=== PATIENT | female | born 1945 | race Caucasian/White ===

== ENCOUNTER → 2017-08-04 08:31 | Outpatient (CLI) | payer OTHER, SELFPAY ==
[2017-08-04 09:00] LABS: Add Manual Diff / Slide Review NO; Basophils Percent Auto 0.8 % (0-2); Hematocrit 38.5 % (36-46); Hemoglobin 13.2 g/dL (12.0-16.0); Lymphocytes Percent Auto 22.2 % (25-40); Mean Corpuscular HGB Conc 34.4 % (30-36); Mean Corpuscular Hemoglobin 31.2 PG (26-34); Mean Corpuscular Volume 90.9 fL (80-100); Monocytes Percent Auto 9.2 % (3-14); Neutrophils Absolute Auto 4200 /uL (3000-5900); Neutrophils Percent Auto 62.8 % (50-75); Platelet Count 235 X10^3/uL (150-400); Red Blood Cell Count 4.23 X10^6/uL (4.0-5.2); Red Cell Distribution Width 13.6 % (11.6-14.8); White Blood Cell Count 6.6 X10^3/uL (4.5-11.0)
[2017-08-04 09:33] LABS: Alanine Aminotransferase 23 IU/L (9-52); Albumin 4.3 g/dL (3.5-5.0); Albumin Globulin Ratio 1.2 (1.0-2.8); Alkaline Phosphatase 94 U/L (38-126); Aspartate Aminotransferase 28 IU/L (14-36); Bilirubin Total 0.7 mg/dL (0.2-1.3); Blood Urea Nitrogen 16 mg/dL (7-17); Calcium 9.7 mg/dL (8.4-10.2); Carbon Dioxide 27 mmol/L (22-32); Chloride 102 mmol/L (98-107); Estimated Glomerular Filt Rate 54.3 mL/min (>60); Globulin 3.5 g/dL (1.7-4.1); Glucose 122 mg/dL (80-110); HDL Cholesterol 50 mg/dL (40-60); HEMOLYSIS < 15 (0-50); Potassium 4.3 mmol/L (3.4-5.1); Sodium 139 mmol/L (137-145); Total Protein 7.8 g/dL (6.3-8.2); Triglycerides 197 mg/dL (35-150)
[2017-08-04 09:57] LABS: TSH w/ Reflex to FT4 2.47 uIU/mL (0.47-4.68)
[2017-08-04 10:04] LABS: Cholesterol 322 mg/dL (140-199); LDL Cholesterol Calculated 233 mg/dL (<100)
[2017-08-04 10:52] LABS: Vitamin B12 258 pg/mL (239-931)
== END ==
PROVIDERS: Family Provider Family Medicine; PCP Family Medicine; Visit Provider Family Medicine
DX: R53.83 Other fatigue (principal); E78.5 Hyperlipidemia, unspecified; I10 Essential (primary) hypertension
CPT/HCPCS: 36415; 80053; 80061; 82607; 84443; 85025

== ENCOUNTER → 2017-08-30 10:33 | Outpatient (CLI) | payer OTHER, SELFPAY | PROVIDERS: Family Provider Family Medicine; PCP Family Medicine; Visit Provider Physician Assistant | DX: N39.0 Urinary tract infection, site not specified (principal) | CPT/HCPCS: 87077; 87086; 87186 ==

== ENCOUNTER 2018-04-07 17:43 | Emergency (ER) | payer OTHER, SELFPAY ==
[2018-04-07 17:50] VITALS: BP 181/58; PULSE 72; RESP 16; TEMP 36.4; O2SAT 98; BMI 35.2
--- NOTE | 2018-04-07 18:17 | PC.NURSE ---
ONgoing issues with urinary retention. On cipro for UTI in which she had large blood clots and a 3 way catheter. Urine clear at this time, has appointment with urologist on for ongoing retention issues.
[2018-04-07 18:24] LABS: Appearance Urine UA CLEAR; Bacteria Urine None Seen; Bilirubin Urine UA NEGATIVE (NEGATIVE); Color Urine UA YELLOW; Glucose Urine UA NEGATIVE (Negative); Ketones Urine UA NEGATIVE (NEGATIVE); Leukocyte Esterase Urine UA NEGATIVE (NEGATIVE); Nitrite Urine UA NEGATIVE (Negative); Occult Blood Urine UA NEGATIVE (Negative); Protein Urine UA NEGATIVE (Negative); RBC Urine None Seen (0-5/HPF); Urobilinogen Urine UA 0.2 E.U./dL (0.2); WBC Urine None Seen (0-5/HPF); pH Urine UA 5.5 (4.5-8.0)
[2018-04-07 18:37] LABS: Culture Indicated Urine Cult Not Indicated; Squamous Epithelial Cell Urine 0-1 /HPF
[2018-04-07 19:04] VITALS: BP 159/67; PULSE 61; RESP 14; O2SAT 96
--- NOTE | 2018-04-07 19:26 | ED.FEMALEGU ---
HPI - Female Genitourinary General Chief complaint: Urogenital-Female Stated complaint: unable to urinate Time Seen by Provider: 04/07/18 18:26 Source: patient Mode of arrival: ambulatory Limitations: no limitations History of Present Illness HPI Narrative: 72-year-old female nonsmoker presents to the emergency department with a chief complaint abdominal bloating, suprapubic tenderness and inability to urinate for the past day or so. She denies any back pain and has no fever or chills. She is not dizzy nor weak or lightheaded. She just flew home from [place] where she had an episode of urinary retention with a Moseley catheter placed. The catheter was removed on Friday and her symptoms developed again today. She has a urology appointment on to address this situation. Nursing noted over 500 mL on the bladder scan MD Complaint: dysuria Onset (ago): hour(s) Location: suprapubic Severity: moderate Quality: Aching Duration: constant Relieving factors: none Exacerbating factors: none Urinary symptoms: Difficulty Urinating Related Data Previous Rx's Medication Instructions Recorded losartan 50 mg-hydrochlorothiazide 1 tab PO QDAY #90 tab 02/16/18 12.5 mg tablet clopidogrel 75 mg tablet 75 mg PO QDAY #90 tab 03/09/18 meloxicam 15 mg tablet 15 mg PO QDAY #90 tab 03/09/18 Allergies Allergy/AdvReac Type Severity Reaction Status Date / Time No Known Drug Allergies Allergy Verified 04/07/18 18:02 Review of Systems Constitutional Denies chills, Denies fever(s), Denies lethargy and Denies weakness Eyes Denies change in vision, Denies eye discharge, Denies irritation and Denies loss of vision ENT Ears, Nose, Mouth, and Throat: Denies change in voice, Denies neck pain and Denies sore throat Cardiovascular Denies chest pain, Denies irregular heart rhythm, Denies lightheadedness, Denies palpitations, Denies dyspnea, Denies dyspnea on exertion and Denies orthopnea Respiratory Denies cough, Denies dyspnea, Denies dyspnea on exertion and Denies wheezing Gastrointestinal Gastrointestinal: Reports abdominal pain, Denies change in bowel habits, Denies diarrhea, Denies nausea and Denies vomiting Genitourinary Denies hematuria, Denies flank pain, Denies urinary incontinence and Denies urinary urgency Comments: inability to urinate Musculoskeletal Denies neck pain Integumentary/Breasts Denies pruritus, Denies erythema, Denies rash and Denies wounds Neurologic Denies confusion, Denies loss of vision and Denies weakness Psychiatric Denies anxiety, Denies confusion, Denies depression, Denies homicidal ideation and Denies suicidal ideation Endocrine Denies palpitations Hematologic/Lymphatic Denies easy bruising Allergic/Immunologic Denies wheezing [facility] Medical History Hearing deficit (Chronic) Rosacea (Chronic ~1997) Vision disorder (Chronic) Chicken pox (Resolved ~1949) Measles (Resolved ~1950) Mumps (Resolved ~1953) Stroke (Resolved ~2009) Surgical History Anesthesia (Resolved) History of hip replacement (~2014) History of tonsillectomy (~1948) Status post appendectomy (~1957) Status post dilation and curettage (~1998) Family History Father No problems noted. Mother No problems noted. Grandfather No problems noted. Grandmother No problems noted. Social History marital status: Smoking Status: Never smoker alcohol intake: current (2+ A DAY ) substance use type: does not use Family History Father No problems noted. Mother No problems noted. Grandfather No problems noted. Grandmother No problems noted. Social History marital status: Smoking Status: Never smoker alcohol intake: current (2+ A DAY ) substance use type: does not use Exam Narrative Exam Narrative: GEN: 72-year-old female appears stated age. AOx3 and in mild distress EYES: Pupils are equal, round, and reactive to light and accommodation. Extraoccular muscles are intact bilaterally. There is no subconjunctival hemorrhage or exudate. CHEST: Lungs are clear to auscultation bilaterally and free of wheezes, rales, or rhonchi. Heart rate is regular rhythm, there are no murmurs, clicks, rubs, or gallops. There is no chest wall tenderness. ABD: Abdomen is soft and nontender. There is no guarding or rebound. Bowel sounds are normal in all 4 quadrants. There is no mass or organomegaly. Moseley catheter in place draining yellow urine EXT: Full painless ROM of all extremities with no loss of sensation or strength. SKIN: Warm, pink, and dry. No erythema or rash Initial Vital Signs Initial Vital Signs: Vital Signs Temperature 97.5 F L 04/07/18 17:50 Pulse Rate 72 04/07/18 17:50 Respiratory Rate 16 04/07/18 17:50 Blood Pressure 181/58 H 04/07/18 17:50 Pulse Oximetry 98 04/07/18 17:50 Course Orders Ordered: ED Orders 04/07/18 18:15 Urinalysis and Microscopic Stat Vital Signs - 8 hr 04/07/18 17:50 04/07/18 19:04 Temperature 97.5 F L Pulse Rate 72 61 Respiratory Rate 16 14 Blood Pressure 181/58 H Blood Pressure [Right Arm] 159/67 H Pulse Oximetry 98 96 MDM - Female Genitourinary Lab Data Lab Results 04/07/18 Range/Units 18:15 Urine Color Yellow Urine Appearance Clear Urine pH 5.5 (4.5-8.0) Ur Specific Alpine 1.010 (1.000-1.035) Urine Protein Negative (Negative) Urine Glucose (UA) Negative (Negative) g/dL Urine Ketones Negative (NEGATIVE) Urine Occult Blood Negative (Negative) Urine Nitrate Negative (Negative) Urine Bilirubin Negative (NEGATIVE) Urine Urobilinogen 0.2 (0.2) E.U./dL Ur Leukocyte Esterase Negative (NEGATIVE) Urine RBC None seen (0-5/HPF) Urine WBC None seen (0-5/HPF) Ur Squamous Epith Cells 0-1 /hpf Urine Bacteria None seen (None) Ur Culture Indicated? Cult not indicated Discharge Plan Departure Patient Disposition: Home Clinical Impression: Acute urinary retention Discharge Date/Time: 04/07/18 19:16 Interventions: ED Discharge Assessment Last Done: 04/07/18 19:16 Instructions: DI for Urinary Retention in Women Activity Restrictions/Additional Instructions: *You have been diagnosed with [ acute urinary retention] *What to do: * continue to take medications as directed *Follow up with your urologist next as planned *Return to ER if you should have any new, worsening or concerning symptoms Prescriptions: No Action losartan-hydrochlorothiazide [Hyzaar] 50-12.5 mg tablet 1 tab PO QDAY Qty: 90 RF: 3 clopidogrel [Plavix] 75 mg tablet 75 mg PO QDAY Qty: 90 RF: 3 meloxicam 15 mg tablet 15 mg PO QDAY Qty: 90 RF: 0 Referrals: Rica Kay MD [Non-Staff] - Allan Garrett MD [Primary Care Provider] -
== END 2018-04-07 19:16 | disposition home or self-care (01) ==
PROVIDERS: Emergency Medicine; Emergency Provider Emergency Medicine; Family Provider Family Medicine; PCP Family Medicine
DX: R33.8 Other retention of urine (principal)
CPT/HCPCS: 51701; 51798; 81001; 99283

== ENCOUNTER → 2018-08-04 09:13 | Outpatient (CLI) | payer OTHER, SELFPAY ==
[2018-08-04 09:57] LABS: Add Manual Diff / Slide Review NO; Basophils Absolute Auto 0 /uL (0-100); Basophils Percent Auto 0.8 % (0-2); Eosinophils Absolute Auto 300 /uL (0-450); Eosinophils Percent Auto 6.1 % (2-4); Hematocrit 39.7 % (36-46); Hemoglobin 13.8 g/dL (12.0-16.0); Lymphocytes Absolute Auto 1300 /uL (1100-4500); Lymphocytes Percent Auto 26.2 % (25-40); Mean Corpuscular HGB Conc 34.8 % (30-36); Mean Corpuscular Hemoglobin 31.5 PG (26-34); Mean Corpuscular Volume 90.6 fL (80-100); Monocytes Absolute Auto 600 /uL (0-900); Neutrophils Absolute Auto 2900 /uL (1500-7000); Neutrophils Percent Auto 55.9 % (50-75); Platelet Count 222 X10^3/uL (150-400); Red Blood Cell Count 4.38 X10^6/uL (4.0-5.2); Red Cell Distribution Width 13.4 % (11.6-14.8); White Blood Cell Count 5.1 X10^3/uL (4.5-11.0)
[2018-08-04 10:17] LABS: Alanine Aminotransferase 10 IU/L (9-52); Albumin 4.5 g/dL (3.5-5.0); Albumin Globulin Ratio 1.3 (1.0-2.8); Alkaline Phosphatase 83 U/L (38-126); Aspartate Aminotransferase 28 IU/L (14-36); Bilirubin Total 0.8 mg/dL (0.2-1.3); Blood Urea Nitrogen 18 mg/dL (7-17); Carbon Dioxide 29 mmol/L (22-32); Chloride 103 mmol/L (98-107); Cholesterol 320 mg/dL (140-199); Estimated Glomerular Filt Rate 43.9 mL/min (>60); Globulin 3.4 g/dL (1.7-4.1); Glucose 110 mg/dL (80-110); HDL Cholesterol 43 mg/dL (40-60); HEMOLYSIS < 15 (0-50); LDL Cholesterol Calculated 241 mg/dL (<100); Potassium 4.8 mmol/L (3.4-5.1); Sodium 140 mmol/L (137-145); Total Protein 7.9 g/dL (6.3-8.2); Triglycerides 178 mg/dL (35-150)
[2018-08-04 11:17] LABS: TSH w/ Reflex to FT4 2.68 uIU/mL (0.47-4.68)
== END ==
PROVIDERS: PCP Family Medicine; Visit Provider Family Medicine
DX: E78.5 Hyperlipidemia, unspecified (principal); I10 Essential (primary) hypertension; Z13.6 Encounter for screening for cardiovascular disorders
CPT/HCPCS: 36415; 80053; 80061; 84443; 85025

== ENCOUNTER 2018-08-25 06:50 | Day surgery (SDC) | payer OTHER, SELFPAY ==
[2018-08-25] VITALS (9 sets, daily range): BP systolic 109–145; BP diastolic 52–91; PULSE 54–67; RESP 10–17; TEMP 36.2–36.8; O2SAT 93–100
--- NOTE | 2018-08-25 | PATH_ITS ---
[facility] Accession Number: [id number] . 01 Material submitted: . PART A: rectum - RECTAL POLYP X2 PART B: ileo-cecal valve - POLYP NEAR ILEOCECAL VALVE . 02 Diagnosis: A. Rectum, Polyps: Fragments of hyperplastic polyp (two polyps removed). . B. Ileocecal Valve, Polyp: Tubular adenoma. MRV/08/26/2018 . 02 Electronically signed: . Obey Clark MD, PhD, Pathologist NPI- [id number] . 01 Gross description: . (A) Received in formalin, labeled rectum polyp x2, are multiple fragments of reyes-white tissue (0.7 x 0.3 x 0.1 cm in aggregate). Filtered and entirely submitted in cassette A1. (B) Received in formalin, labeled polyp near ileocecal valve, are three fragments of reyes-christensen tissue (0.8 x 0.3 x 0.1 cm in aggregate). Filtered and entirely submitted in cassette B1. ([id number]) /[facility] . 02 Pathologist provided ICD-10: K62.1, D12.0 . 02 CPT . 469300, 857696 Performed at: 01 [facility] [address], [place], [place] [id number] MD Milind Zaman MD Phone: [phone] Performed at: 02 [facility] [address] [place], [place] [id number] MD Paula Bowman MD Phone: [phone]
[2018-08-25] MEDS: SODIUM CHLORIDE 0.9% 1,000 ML 84 ML IV (07:14)
--- NOTE | 2018-08-25 08:05 | PM.HP.1 ---
History of Present Illness Date Patient Seen: 08/25/18 Time Patient Seen: 08:05 Chief complaint: [id number] Narrative: The patient is a woman here for screening colonoscopy. She does not remember when her last exam was. Is been long time. No recollection of having polyps removed in the past. Patient History Medical History Hearing deficit (Chronic) Rosacea (Chronic ~1997) Vision disorder (Chronic) Chicken pox (Resolved ~1949) Measles (Resolved ~1950) Mumps (Resolved ~1953) Stroke (Resolved ~2009) Surgical History History of total right knee replacement (TKR) (Acute ~06/04/17) Anesthesia (Resolved) History of hip replacement (~2014) History of tonsillectomy (~1948) Status post appendectomy (~1957) Status post dilation and curettage (~1998) Family History Father No problems noted. Mother No problems noted. Grandfather No problems noted. Grandmother No problems noted. Social History marital status: household members: spouse Smoking Status: Never smoker alcohol intake: current (2+ A DAY ) substance use type: does not use Family & Social History Family History Father No problems noted. Mother No problems noted. Grandfather No problems noted. Grandmother No problems noted. Social History: household members spouse Tobacco & Substance use: Smoking Status Never smoker alcohol intake current alcohol intake frequency 0-2 drinks per day Substance Use Type does not use Meds Home Medications Medication Instructions Recorded Confirmed Type losartan 50 mg-hydrochlorothiazide 1 tab PO QDAY #90 tab 02/16/18 08/25/18 Rx 12.5 mg tablet clopidogrel 75 mg tablet 75 mg PO QDAY #90 tab 03/09/18 08/25/18 Rx triamcinolone acetonide 0.1 % See Rx Instructions TOP BID #28.4 08/05/18 08/25/18 Rx topical cream gram meloxicam 15 mg tablet 15 mg PO QDAY #90 tab 08/24/18 08/25/18 Rx Allergies Allergy/AdvReac Type Severity Reaction Status Date / Time No Known Drug Allergies Allergy Verified 08/25/18 07:08 Review of Systems Review of Systems All systems reviewed & are unremarkable except as noted in HPI and below Neurologic Comments: History of stroke in the distant past. Has used Plavix since. Exam Vital Signs (past 8 hours): - 08/25/18 07:10 Temperature 98.2 F Pulse Rate 67 Respiratory Rate 16 Blood Pressure 145/82 H Oxygen Delivery Method Room Air Narrative Exam Narrative: Operative no apparent distress. Eyes nonicteric. Lungs clear to auscultation. Heart regular rate and rhythm without murmur gallop. Abdomen is soft protuberant nontender without mass. Alert and oriented x3. Assessment & Plan Assessment & Plan narrative: For colonoscopy. I have discussed the procedure and the rationale with the patient including risks of bleeding, perforation which would necessitate a major operation, failure to find remove all lesions and the potential to tattoo. They appeared to understand and wished to proceed.
--- NOTE | 2018-08-25 08:08 | PM.PREOP ---
Pre-operative Note Interval Note History & Physical reviewed/Exam performed by Physician: Yes Changes to H&P: No ASA Class (for procedural sedation): II
--- NOTE | 2018-08-25 08:30 | SUR.OPER ---
Used Alligator biopsy forceps [id number]
[2018-08-25] MEDS: fentaNYL 250 MCG/5 ML INJ IV (09:05)
[2018-08-25] MEDS: MIDAZOLAM 5 MG/5 ML VIAL IV (09:06)
--- NOTE | 2018-08-25 09:20 | P.OP.ENDO_ITS ---
Operative Date/Time/Diagnoses Date of procedure: 08/25/18 Time of procedure: 09:15 Pre-op diagnosis: Screening exam. Last exam was 2010 Post-op diagnosis: same (Polyp near the cecum. Also to in the rectum. Internal hemorrhoids. Extensive pandiverticulosis.) Procedure & Clinicians Study performed: Colonoscopy with cold biopsy Same procedure as scheduled: Yes Indications: Screening Surgeon: Adan Shrestha Procedure Notes SCOAP/Timeout: Performed Procedure in detail: The patient was placed in the left lateral decubitus position and underwent IV sedation directed by the surgeon consisting of fentanyl and Versed. Digital exam was remarkable for external hemorrhoids. There was a small amount of stool in the vault.. The scope was inserted and advanced through the rectum into the sigmoid, descending, transverse, and ascending colon. We reached the ascending colon with some difficulty as the patient had to be repositioned, stiffener applied, and pressure applied. There was a small polyp noted in the proximal rectum that was biopsied on the way in. It appeared to be completely removed.. The cecum was reached identified by the ileocecal valve and the appendiceal opening. The ileocecal valve was not can nulated. There was a small polypoid lesion near the ileocecal valve. This was biopsied and appeared to be removed. The scope was gradually brought out. One other Polyp was found at 20 cm. This was a tiny polyp which was removed with biopsy forceps.. The scope ultimately was retroflexed in the rectum. The appearance was remarkable for rather large hemorrhoids but no ulceration.. The scope was removed and the patient tolerated the procedure well. Prep was good. Scope withdrawal time: 8 minutes Sedation minutes: 63 Findings: diverticulosis (Abarca colonic), internal hemorrhoids (With external hemorrhoids) and polyp (Three small polyps removed) Specimen(s): other (Polyps) Complications: none Recommendations: Colonscopy in 5 years (Unless the polyps are not neoplastic in which case the patient would not require additional colonoscopy) Follow up: as needed Disposition: PACU
== END 2018-08-25 10:35 | disposition home or self-care (01) ==
PROVIDERS: PCP Family Medicine; Visit Provider Specialist
PROC: 0DJD8ZZ Inspection of Lower Intestinal Tract, Via Natural or Artificial Opening Endoscopic (ICD-10-PCS; CPT 45378; principal; 2018-08-25 07:45)
DX: Z12.11 Encounter for screening for malignant neoplasm of colon (principal); K57.30 Diverticulosis of large intestine without perforation or abscess without bleeding; K64.4 Residual hemorrhoidal skin tags; K64.8 Other hemorrhoids; D12.0 Benign neoplasm of cecum; K62.1 Rectal polyp
CPT/HCPCS: 45380; 99152; 99153; J2250; J3010

== ENCOUNTER → 2018-11-02 15:14 | Outpatient (CLI) | payer OTHER, SELFPAY | PROVIDERS: PCP Family Medicine; Visit Provider Family Medicine | DX: R30.0 Dysuria (principal) | CPT/HCPCS: 87077; 87086; 87186 ==

== ENCOUNTER → 2019-03-01 11:37 | Outpatient (CLI) | payer MEDICARE, SELFPAY ==
[2019-03-01 13:16] LABS: Appearance Urine UA CLOUDY; Bilirubin Urine UA NEGATIVE (NEGATIVE); Color Urine UA YELLOW; Glucose Urine UA NEGATIVE (Negative); Ketones Urine UA NEGATIVE (NEGATIVE); Leukocyte Esterase Urine UA 1+ (NEGATIVE); Nitrite Urine UA POSITIVE (Negative); Occult Blood Urine UA TRACE-LYSED (Negative); Protein Urine UA 1+ (Negative); Specific Gravity Urine UA 1.015 (1.000-1.035); Urobilinogen Urine UA 0.2 E.U./dL (0.2)
[2019-03-01 13:54] LABS: Amorphous Sediment Urine 3+; Bacteria Urine Many (>30); Culture Indicated Urine Specimen Cultured; RBC Urine 1-5/HPF (0-5/HPF); Squamous Epithelial Cell Urine 1-5 /HPF (0-5/HPF); Triple Phosphate Crystal Urine Many; WBC Urine 10-30/HPF (0-5/HPF)
== END ==
PROVIDERS: PCP Family Medicine; Visit Provider Family Medicine
DX: R30.0 Dysuria (principal)
CPT/HCPCS: 81003; 81015; 87086

== ENCOUNTER → 2020-01-15 09:23 | Outpatient (CLI) | payer MEDICARE, SELFPAY ==
[2020-01-15 10:11] LABS: COVID19 -Nasal RAPID Negative (Negative)
== END ==
PROVIDERS: PCP Family Medicine; Visit Provider Physician Assistant
DX: Z11.59 Encounter for screening for other viral diseases (principal)
CPT/HCPCS: 87635

== ENCOUNTER → 2020-01-20 13:58 | Outpatient (CLI) | payer MEDICARE, SELFPAY ==
[2020-01-20 15:09] LABS: Appearance Urine UA CLOUDY; Bilirubin Urine UA NEGATIVE (NEGATIVE); Color Urine UA YELLOW; Glucose Urine UA NEGATIVE (Negative); Ketones Urine UA NEGATIVE (NEGATIVE); Leukocyte Esterase Urine UA TRACE (NEGATIVE); Nitrite Urine UA POSITIVE (Negative); Occult Blood Urine UA TRACE-INTACT (Negative); Protein Urine UA 2+ (Negative); Specific Gravity Urine UA 1.015 (1.000-1.035); Urobilinogen Urine UA 0.2 E.U./dL (0.2)
[2020-01-20 15:35] LABS: pH Urine UA 7.5 (4.5-8.0)
[2020-01-20 15:36] LABS: RBC Urine 0-1/HPF (0-5/HPF)
[2020-01-20 15:37] LABS: Amorphous Sediment Urine 2+; Bacteria Urine Many (>30); Culture Indicated Urine Specimen Cultured; Squamous Epithelial Cell Urine 0-1 /HPF (0-5/HPF); Triple Phosphate Crystal Urine Few; WBC Urine 10-30/HPF (0-5/HPF)
== END ==
PROVIDERS: PCP Family Medicine; Visit Provider Family Medicine
DX: R30.0 Dysuria (principal)
CPT/HCPCS: 81001; 87086

== ENCOUNTER → 2020-01-22 09:27 | Outpatient (CLI) | payer MEDICARE, SELFPAY ==
[2020-01-22 11:09] LABS: COVID19 -Nasal RAPID Negative (Negative)
== END ==
PROVIDERS: PCP Family Medicine; Visit Provider Nurse Practitioner
DX: Z11.59 Encounter for screening for other viral diseases (principal)
CPT/HCPCS: 87635

== ENCOUNTER 2020-01-25 07:43 | Day surgery (SDC) | payer MEDICARE, SELFPAY ==
[2020-01-25 08:02] VITALS: BP 153/82; PULSE 86; RESP 16; TEMP 36.4; O2SAT 95; BMI 34.3
[2020-01-25] MEDS: PROPARACAINE 0.5% OPHTH SOL 2 DROPS EYE-OP (08:09)
[2020-01-25] MEDS: CATARACT EYE COMPOUND (10 DROPS/SYRINGE) 3 DROPS EYE-OP (08:14)
--- NOTE | 2020-01-25 09:00 | P.OP_ITS ---
Operative Date/Time/Diagnoses Pre-op diagnosis: Nuclear Cataract Left eye Post-op diagnosis: same Procedure & Clinicians Same procedure as scheduled: Yes Surgeon: Hamlet Alvarez Anesthesia Type: MAC +/- and Sedation Operative Notes Procedure in detail: Patient brought to the operating suite. Tetracaine drops placed in the left eye. Marking instrument was used to angelina the vertical and horizontal meridians. Patient was prepped and draped in sterile manner. Wire lid speculum was placed in the eye. Marking instrument was used to angelina the 85 degree meridian. Betadine drops were placed on the eye. This was irrigated. Lidocaine jelly was placed on the eye. A paracentesis port was created with a side-port blade. 0.1 mL 1% preservative free lidocaine was injected into the anterior chamber. The anterior chamber was deepened with viscoelastic. 2.6 mm keratome was used to create a temporal clear corneal incision. Cystotome and Utrata forceps were used to create continuous tear capsulorrhexis. Balanced salt solution was used to hydro dissect the nucleus. The phacoemulsification handpiece was inserted and the nucleus was removed using the stop and chop najma hnique. The irrigation aspiration handpiece was inserted and the remaining cortex was removed. Anterior chamber was deepened with viscoelastic. An Schofield [id number] intraocular lens with a power of 22.0 was injected into the capsular bag. Irrigation aspiration handpiece was inserted and the remaining viscoelastic was removed. The lens was rotated to the 85 degree meridian. Incision was hydrated with balanced salt solution and found to be leak free with pressure with Weck- Maida sponges. 0.1 mL Vigamox injected anterior chamber. 0.3 mL Kenalog 10 mg was injected subconjunctivally. Lid speculum was removed. The patient left the operating room in excellent condition. Complications: none Post-operative Condition: stable Disposition: same day surgery
--- NOTE | 2020-01-25 09:00 | PM.PREOP ---
Pre-operative Note Interval Note History & Physical reviewed/Exam performed by Physician: Yes Changes to H&P: No
[2020-01-25] MEDS: PHENYLEPHRINE/LIDOCAINE VIAL (OR) 0.2 ML EYE-OP (09:21)
[2020-01-25] MEDS: TRIAMCINOLONE 50 MG/5 ML VIAL INJ (09:21)
[2020-01-25] MEDS: MOXIFLOXACIN INJ 5 MG/ML VIAL EYE-OP (09:21)
[2020-01-25] MEDS: BALANCED SALT IRRIG SOLN NO.2 500 ML, EPINEPHrine 1 MG IRR (09:22)
[2020-01-25] MEDS: CHONDROIDTIN/SOD HYALURONATE 1.05 ML SYRINGE INTRAOCULA (09:22)
[2020-01-25] MEDS: TETRACAINE 0.5% OPHTH DROPS 4 ML 2 DROPS EYE-OP (09:22)
[2020-01-25] MEDS: LIDOCAINE JELLY 2% 5 ML 1 APPLIC TOP (09:22)
[2020-01-25 09:36] VITALS: BP 151/70; PULSE 65; RESP 16; TEMP 36.6; O2SAT 95
--- NOTE | 2020-01-25 09:51 | SUR.PHASEII ---
Pt dressed when ready, called, assisted pt to dress. pt left when ready and left in stable condition.
== END 2020-01-25 09:51 | disposition home or self-care (01) ==
PROVIDERS: PCP Family Medicine; Referring Provider Family Medicine; Visit Provider Ophthalmology
PROC: (CPT 66984; principal; 2020-01-25 07:45)
DX: H25.12 Age-related nuclear cataract, left eye (principal); Z86.73 Personal history of transient ischemic attack (TIA), and cerebral infarction without residual deficits; E78.00 Pure hypercholesterolemia, unspecified; I10 Essential (primary) hypertension
CPT/HCPCS: 66984; J0171; J2250; J3010; J3301; V2787

== ENCOUNTER → 2020-02-12 11:23 | Outpatient (CLI) | payer MEDICARE, SELFPAY ==
[2020-02-12 12:36] LABS: COVID19 -Nasal RAPID Negative (Negative)
== END ==
PROVIDERS: PCP Family Medicine; Visit Provider Physician Assistant
DX: Z01.812 Encounter for preprocedural laboratory examination (principal); Z20.822 Contact with and (suspected) exposure to COVID-19
CPT/HCPCS: 87635; C9803

== ENCOUNTER → 2020-02-19 13:34 | Outpatient (CLI) | payer MEDICARE, SELFPAY ==
[2020-02-19 14:51] LABS: COVID19 -Nasal RAPID Negative (Negative)
== END ==
PROVIDERS: PCP Family Medicine; Visit Provider Nurse Practitioner
DX: Z01.812 Encounter for preprocedural laboratory examination (principal); Z20.822 Contact with and (suspected) exposure to COVID-19
CPT/HCPCS: 87635; C9803

== ENCOUNTER 2020-02-22 08:26 | Day surgery (SDC) | payer MEDICARE, SELFPAY ==
[2020-02-22 08:56] VITALS: BP 134/75; PULSE 77; RESP 20; TEMP 36.2; O2SAT 98; BMI 34.3
[2020-02-22] MEDS: PROPARACAINE 0.5% OPHTH SOL 2 DROPS EYE-OP (09:01)
[2020-02-22] MEDS: CATARACT EYE COMPOUND (10 DROPS/SYRINGE) 3 DROPS EYE-OP (09:02)
--- NOTE | 2020-02-22 09:42 | PM.PREOP ---
Pre-operative Note Interval Note History & Physical reviewed/Exam performed by Physician: Yes Changes to H&P: No
--- NOTE | 2020-02-22 09:43 | PM.OP.1 ---
Operative Date/Time/Diagnoses Pre-op diagnosis: Nuclear cataract right eye Procedure & Clinicians Procedure: Cataract Surgery Same procedure as scheduled: Yes Surgeon: Hamlet Alvarez Anesthesia Type: MAC +/- and Sedation Operative Notes Procedure in detail: Patient brought to the operating suite. Tetracaine drops placed in the right eye. Marking instrument was used to angelina the vertical and horizontal meridians. Patient was prepped and draped in sterile manner. Wire lid speculum was placed in the eye. marking instrument was used to angelina 50 degree meridian. Betadine drops were placed on the eye. This was irrigated. Lidocaine jelly was placed on the eye. A paracentesis port was created with a side-port blade. 0.1 mL 1% preservative free lidocaine was injected into the anterior chamber. The anterior chamber was deepened with viscoelastic. 2.6 mm keratome was used to create a temporal clear corneal incision. Cystotome and Utrata forceps were used to create continuous tear capsulorrhexis. Balanced salt solution was used to hydro dissect the nucleus. The phacoemulsification handpiece was inserted and the nucleus was removed using the stop and chop technique. The irrigation aspiration handpiece was inserted and the remaining cortex was removed. Anterior chamber was deepened with viscoelastic. An Schofield [id number] intraocular lens with a power of 20.5 was injected into the capsular bag. After the lens was placed in the bag there was 2 clock hours of zonular dehisccence and bleeding at 10:00. Irrigation aspiration handpiece was inserted and the remaining viscoelastic was removed. There was some vitreous at the area of zonular dehisccence. The lens was rotated to the 50 degree meridian. Incision was hydrated with balanced salt solution and found to be leak free with pressure with Weck-Maida sponges. 0.1 mL Vigamox injected anterior chamber. 0.3 mL Kenalog 10 mg was injected subconjunctivally. Lid speculum was removed. 2 drops of timolol 0.5 % was placed in the eye. The patient left the operating room in excellent condition. Complications: none Post-operative Condition: stable Disposition: same day surgery
[2020-02-22] MEDS: PHENYLEPHRINE/LIDOCAINE VIAL (OR) 0.2 ML EYE-OP (10:05)
[2020-02-22] MEDS: TRIAMCINOLONE 50 MG/5 ML VIAL INJ (10:05)
[2020-02-22] MEDS: MOXIFLOXACIN INJ 5 MG/ML VIAL EYE-OP (10:05)
[2020-02-22] MEDS: TETRACAINE 0.5% OPHTH DROPS 4 ML 2 DROPS EYE-OP (10:06)
[2020-02-22] MEDS: CHONDROIDTIN/SOD HYALURONATE 1.05 ML SYRINGE INTRAOCULA (10:06)
[2020-02-22] MEDS: LIDOCAINE JELLY 2% 5 ML 1 APPLIC TOP (10:06)
[2020-02-22] MEDS: BALANCED SALT IRRIG SOLN NO.2 500 ML, EPINEPHrine 1 MG IRR (10:07)
[2020-02-22] MEDS: TIMOLOL 0.5% OPHTH 2 DROPS EYE-RIGHT (10:19)
[2020-02-22 10:40] VITALS: BP 168/78; PULSE 68; RESP 17; TEMP 36.2; O2SAT 94
== END 2020-02-22 10:53 | disposition home or self-care (01) ==
PROVIDERS: PCP Family Medicine; Referring Provider Ophthalmology; Visit Provider Ophthalmology
PROC: (CPT 66984; principal; 2020-02-22 10:15)
DX: H25.11 Age-related nuclear cataract, right eye (principal); Z86.73 Personal history of transient ischemic attack (TIA), and cerebral infarction without residual deficits; E78.00 Pure hypercholesterolemia, unspecified; I10 Essential (primary) hypertension
CPT/HCPCS: 66984; J0171; J2250; J3301; V2787

== ENCOUNTER → 2020-04-12 11:31 | Outpatient (CLI) | payer MEDICARE, SELFPAY ==
[2020-04-12 12:37] LABS: Add Manual Diff / Slide Review NO; Basophils Absolute Auto 0 /uL (0-100); Basophils Percent Auto 0.7 % (0-2); Eosinophils Absolute Auto 400 /uL (0-450); Eosinophils Percent Auto 5.6 % (2-4); Hematocrit 35.6 % (36-46); Hemoglobin 12.2 g/dL (12.0-16.0); Lymphocytes Absolute Auto 2100 /uL (1100-4500); Lymphocytes Percent Auto 31.8 % (25-40); Mean Corpuscular HGB Conc 34.1 % (30-36); Mean Corpuscular Hemoglobin 31.7 PG (26-34); Monocytes Absolute Auto 700 /uL (0-900); Monocytes Percent Auto 10.3 % (3-14); Neutrophils Absolute Auto 3400 /uL (1500-7000); Neutrophils Percent Auto 51.6 % (50-75); Platelet Count 271 X10^3/uL (150-400); Red Blood Cell Count 3.83 X10^6/uL (4.0-5.2); Red Cell Distribution Width 13.3 % (11.6-14.8); White Blood Cell Count 6.5 X10^3/uL (4.5-11.0)
[2020-04-12 12:55] LABS: Alanine Aminotransferase 9 IU/L (<35); Albumin 4.5 g/dL (3.5-5.0); Albumin Globulin Ratio 1.6 (1.0-2.8); Alkaline Phosphatase 81 U/L (38-126); Aspartate Aminotransferase 24 IU/L (14-36); BUN Creatinine Ratio 15.7 (6-22); Bilirubin Total 0.6 mg/dL (0.2-1.3); Blood Urea Nitrogen 16 mg/dL (7-17); Calcium 10.2 mg/dL (8.4-10.2); Carbon Dioxide 27 mmol/L (22-32); Chloride 101 mmol/L (98-107); Estimated Glomerular Filt Rate 52.8 mL/min (>60); Globulin 2.8 g/dL (1.7-4.1); Glucose 117 mg/dL (80-110); HEMOLYSIS < 15 (0-50); Potassium 3.9 mmol/L (3.4-5.1); Sodium 136 mmol/L (137-145); Total Protein 7.3 g/dL (6.3-8.2)
[2020-04-18 13:01] LABS: Urea Breath Test >18YRS NEGATIVE
== END ==
PROVIDERS: PCP Family Medicine; Referring Provider Family Medicine; Visit Provider Family Medicine
DX: R10.9 Unspecified abdominal pain (principal); R63.4 Abnormal weight loss
CPT/HCPCS: 36415; 80053; 83013; 85025

== ENCOUNTER → 2020-05-15 11:54 | Outpatient (CLI) | payer MEDICARE, SELFPAY ==
[2020-05-15 13:32] LABS: Appearance Urine UA CLOUDY; Bilirubin Urine UA NEGATIVE (NEGATIVE); Color Urine UA YELLOW; Glucose Urine UA NEGATIVE (Negative); Ketones Urine UA NEGATIVE (NEGATIVE); Leukocyte Esterase Urine UA 2+ (NEGATIVE); Nitrite Urine UA NEGATIVE (Negative); Occult Blood Urine UA 3+ (Negative); Protein Urine UA 1+ (Negative); Specific Gravity Urine UA 1.015 (1.000-1.035)
[2020-05-15 13:37] LABS: pH Urine UA 7.5 (4.5-8.0)
[2020-05-15 13:48] LABS: Amorphous Sediment Urine 2+; Bacteria Urine Many (>30); RBC Urine 30-100/HPF (0-5/HPF); Squamous Epithelial Cell Urine 1-5 /HPF (0-5/HPF); WBC Urine >100/HPF (0-5/HPF)
[2020-05-15 13:50] LABS: Culture Indicated Urine Specimen Cultured
== END ==
PROVIDERS: PCP Family Medicine; Referring Provider Family Medicine; Visit Provider Family Medicine
DX: R31.9 Hematuria, unspecified (principal)
CPT/HCPCS: 81003; 81015; 87077; 87086; 87186

== ENCOUNTER 2020-05-17 13:06 | Emergency (ER) | payer MEDICARE, SELFPAY ==
[2020-05-17 13:25] VITALS: BP 174/80; PULSE 84; RESP 14; TEMP 36.8; O2SAT 97
[2020-05-17 13:38] LABS: Bacteria Urine None Seen
--- NOTE | 2020-05-17 13:52 | DI.RAD.S_ITS ---
PROCEDURE: XR CHEST 1V INDICATIONS: suspected sepsis TECHNIQUE: One view of the chest was acquired. COMPARISON: None. FINDINGS: Surgical changes and devices: None. Lungs and pleura: Lungs are clear. No pleural effusions or pneumothorax. Mediastinum: Mediastinal contours appear normal. Calcified mediastinal lymph nodes. Heart size is normal. Bones and chest wall: No suspicious bony lesions. Overlying soft tissues appear unremarkable. IMPRESSION: No acute cardiopulmonary disease. Dictated by: Jackie Cartwright M.D. on 05/17/2020 at 13:58 Approved by: Jackie Cartwright M.D. on 05/17/2020 at 13:58
[2020-05-17 14:01] LABS: Appearance Urine UA TURBID; Bilirubin Urine UA NEGATIVE (NEGATIVE); Color Urine UA RED; Glucose Urine UA NEGATIVE (Negative); Ketones Urine UA TRACE (NEGATIVE); Leukocyte Esterase Urine UA TRACE (NEGATIVE); Nitrite Urine UA NEGATIVE (Negative); Occult Blood Urine UA 3+ (Negative); Protein Urine UA 3+ (Negative)
[2020-05-17 14:05] LABS: pH Urine UA 7.5 (4.5-8.0)
[2020-05-17 14:08] LABS: Culture Indicated Urine Specimen Cultured; RBC Urine >100/HPF (0-5/HPF); WBC Urine 5-10/HPF (0-5/HPF)
[2020-05-17] MEDS: SODIUM CHLORIDE 0.9% 1,000 ML 1000 ML IV (14:28)
[2020-05-17 14:31] LABS: Add Manual Diff / Slide Review NO; Basophils Absolute Auto 100 /uL (0-100); Basophils Percent Auto 0.8 % (0-2); Eosinophils Absolute Auto 400 /uL (0-450); Eosinophils Percent Auto 4.5 % (2-4); Hematocrit 34.1 % (36-46); Hemoglobin 11.7 g/dL (12.0-16.0); Lymphocytes Absolute Auto 2400 /uL (1100-4500); Lymphocytes Percent Auto 27.2 % (25-40); Mean Corpuscular HGB Conc 34.2 % (30-36); Mean Corpuscular Hemoglobin 32.1 PG (26-34); Mean Corpuscular Volume 93.8 fL (80-100); Monocytes Absolute Auto 900 /uL (0-900); Monocytes Percent Auto 10.4 % (3-14); Neutrophils Absolute Auto 5000 /uL (1500-7000); Neutrophils Percent Auto 57.1 % (50-75); Platelet Count 262 X10^3/uL (150-400); Red Blood Cell Count 3.64 X10^6/uL (4.0-5.2); Red Cell Distribution Width 13.5 % (11.6-14.8); White Blood Cell Count 8.8 X10^3/uL (4.5-11.0)
[2020-05-17 14:39] LABS: INR 1.1 (0.9-1.3); Prothrombin Time 12.9 SECONDS (10.1-12.7)
[2020-05-17 14:41] LABS: PTT Partial Thromboplastin Tim 35 SECONDS (26.4-36.2)
[2020-05-17 14:47] LABS: Lactate (Lactic Acid) 1.2 mmol/L (0.7-2.1)
[2020-05-17 14:48] LABS: Alanine Aminotransferase 9 IU/L (<35); Albumin 4.5 g/dL (3.5-5.0); Albumin Globulin Ratio 1.4 (1.0-2.8); Alkaline Phosphatase 89 U/L (38-126); Aspartate Aminotransferase 26 IU/L (14-36); BUN Creatinine Ratio 19.4 (6-22); Bilirubin Total 0.6 mg/dL (0.2-1.3); Blood Urea Nitrogen 20 mg/dL (7-17); Calcium 10.4 mg/dL (8.4-10.2); Carbon Dioxide 25 mmol/L (22-32); Chloride 98 mmol/L (98-107); Estimated Glomerular Filt Rate 52.2 mL/min (>60); Globulin 3.2 g/dL (1.7-4.1); Glucose 107 mg/dL (80-110); HEMOLYSIS < 15 (0-50); Lipase 142 U/L (23-300); Potassium 3.6 mmol/L (3.4-5.1); Sodium 135 mmol/L (137-145); Total Protein 7.7 g/dL (6.3-8.2)
--- NOTE | 2020-05-17 15:32 | ED_ITS ---
HPI - Female Genitourinary General Chief complaint: Urogenital-Female Stated complaint: blood clots in urine Time Seen by Provider: 05/17/20 15:19 Source: patient Mode of arrival: Ambulatory Limitations: no limitations History of Present Illness HPI Narrative: This is a 74-year-old female comes emergency department with concern for bladder infection and hematuria. Patient was noted that she had hematuria about 3 days ago. She has had frequent UTIs sometimes up to 3 times yearly. She had urine obtained and was started on Macrobid or nitrofurantoin. Patient states she has felt feverish and chilled overnight she has been having chronic nausea since January. She has not been having any emesis. She has bee n having early satiety and anorexia and had a unintentional 25 lb weight loss since January. Patient denies any abdominal pain except for sometimes burning overnight but this is also been occurring since January. She has not had any new changes and does not have any currently. She is not appreciate any bright red blood, melena, diarrhea or other GI issues. She has noticed a decrease in her output. She has chronic urinary incontinence, she has developed some dysuria, frequency and cloudy urine in the last 3 days. Patient states she was hospitalized in [place] for several days and required [place] catheterization with irrigation for hematuria. Patient states she does have a history of h ypertension, TIA or stroke and takes clopidogrel daily. She was on his medication for dyslipidemia but did not tolerate this well. She denies any diabetes or chronic kidney disease. Her prior surgeries include appendectomy, knee surgery, hip surgery and a D&C remotely when she was lokesh/postmenopausal. No allergies to medications. No tobacco, occasional alcohol which she has been abstinent for 4 months with no illicit. Dr. Garrett is her primary care. With her chronic symptoms since January they had been anticipating ordering a CT of her abdomen and pelvis. Related Data Previous Rx's Medication Instructions Recorded clopidogrel 75 mg tablet 75 mg PO QDAY #90 tab 06/25/19 hydrochlorothiazide 12.5 mg tablet 12.5 mg PO DAILY #90 tab 04/04/20 losartan 50 mg tablet 50 mg PO DAILY #90 tab 04/04/20 nitrofurantoin 100 mg PO Q12H 5 Days #10 cap 05/15/20 monohydrate/macrocrystals 100 mg capsule nitrofurantoin macrocrystal 100 mg PO BEDTIME #60 cap 05/17/20 Allergies Allergy/AdvReac Type Severity Reaction Status Date / Time No Known Drug Allergies Allergy Verified 05/17/20 13:39 Review of Systems Review of Systems ROS Unobtainable: All systems reviewed & are unremarkable except as noted in HPI and below Patient History Medical History Arthritis, lumbar spine Chicken pox (~1949) Hearing deficit Left leg weakness Measles (~1950) Mumps (~1953) Rosacea (~1997) Stroke (~2009) Vision disorder Surgical History Anesthesia History of hip replacement (~2014) History of tonsillectomy (~1948) History of total right knee replacement (TKR) (~06/04/17) Status post appendectomy (~1957) Status post dilation and curettage (~1998) Family History Father No problems noted. Mother No problems noted. Grandfather No problems noted. Grandmother No problems noted. alcohol intake frequency: 0-2 drinks per day Substance Use Type: does not use Exam Narrative Exam Narrative: GENERAL: Alert and oriented x three, well-nourished female in mild distress. HEENT: Head normocephalic, atraumatic, EOMI, pupils reactive, face symmetric, moist mucous membranes NECK: Supple, full range of motion CARDIOVASCULAR: Regular rate and rhythm without murmurs, rubs or gallops. RESPIRATORY: Breath sounds equal bilaterally, no wheezes rales or rhonchi. ABDOMEN: Soft, nontender. Normoactive bowel sounds all 4 quadrants. No guarding or rebound, rigidity, no mass : No CVA tenderness EXTREMITIES: Normal range of motion, no clubbing or edema. Neurovascularly intact NEUROLOGICAL: Cranial nerves II through XII grossly intact. Moving all extremities SKIN: Warm, dry, no petechiae, no rashes or lesions. Initial Vital Signs Initial Vital Signs: Vital Signs Temperature 98.2 F 05/17/20 13:25 Pulse Rate 84 05/17/20 13:25 Respiratory Rate 14 05/17/20 13:25 Blood Pressure 174/80 H 05/17/20 13:25 Pulse Oximetry 97 04/07/21 13:25 Course Orders Ordered: ED Orders 05/17/20 13:11 Urinalysis and Microscopic Stat Urine Culture Stat 05/17/20 13:52 XR chest 1V Stat EKG-12 Lead Stat 05/17/20 14:10 Complete Blood Count AUTO DIFF Stat Comprehensive Metabolic Panel Stat Lactate (Lactic Acid) Stat Lipase Stat Partial Thromboplastin Time Stat Procalcitonin Stat Prothrombin Time INR Stat 05/17/20 14:33 Blood Culture Stat 05/17/20 15:56 CT abdomen pelvis w con Stat Discontinued Medications Sodium Chloride (Normal Saline 0.9%) 1,000 mls @ 1,000 mls/hr IV BOLUS ONE Stop: 05/17/20 14:50 Last Infusion: 05/17/20 15:33 Dose: 0 mls/hr Documented by: JOSÉ MIGUEL Admin: 05/17/20 14:28 Dose: 1,000 mls/hr Documented by: JOSÉ MIGUEL Consultations Consultation #1: Spoke with Dr. Leonard. He would like us to to see patient for follow-up. He feels that she needs cystoscopy but he would like her to be treated with a full 7 days of her nitrofurantoin followed by 1 tablet q.h.s. times 60 days. He does ask that we copy him on the chart so that he can receive the patient information. Time: 17:00 Vital Signs Vital signs: Vital Signs - 8 hr 05/17/20 13:25 05/17/20 17:43 Temperature 98.2 F Pulse Rate 84 72 Respiratory Rate 14 Blood Pressure 174/80 H 140/70 Pulse Oximetry 97 98 MDM - Female Genitourinary Lab Data Attestation: I reviewed the patient's lab results. Result diagrams: 05/17/20 14:10 05/17/20 14:10 Labs: Lab Results 05/17/20 05/17/20 05/17/20 Range/Units 13:11 14:10 14:10 WBC 8.8 (4.5-11.0) X10^3/uL RBC 3.64 L (4.0-5.2) X10^6/uL Hgb 11.7 L (12.0-16.0) g/dL Hct 34.1 L (36-46) % MCV 93.8 (80-100) fL MCH 32.1 (26-34) PG MCHC 34.2 (30-36) % RDW 13.5 (11.6-14.8) % Plt Count 262 (150-400) X10^3/uL Neut % (Auto) 57.1 (50-75) % Lymph % (Auto) 27.2 (25-40) % [place] % (Auto) 10.4 (3-14) % Eos % (Auto) 4.5 H (2-4) % Baso % (Auto) 0.8 (0-2) % Neut # (Auto) 5000 (9323-1782) /uL Lymph # (Auto) 2400 (5118-7934) /uL [place] # (Auto) 900 (0-900) /uL Eos # (Auto) 400 (0-450) /uL Baso # (Auto) 100 (0-100) /uL PT 12.9 H (10.1-12.7) SECONDS INR 1.1 (0.9-1.3) APTT 35 (26.4-36.2) SECONDS Sodium (137-145) mmol/L Potassium (3.4-5.1) mmol/L Chloride (98-107) mmol/L Carbon Dioxide (22-32) mmol/L BUN (7-17) mg/dL Creatinine (0.52-1.04) mg/dL Estimated GFR (>60) mL/min BUN/Creatinine Ratio (6-22) Glucose (80-110) mg/dL Lactate (0.7-2.1) mmol/L Calcium (8.4-10.2) mg/dL Total Bilirubin (0.2-1.3) mg/dL AST (14-36) IU/L ALT (<35) IU/L Alkaline Phosphatase (38-126) U/L Total Protein (6.3-8.2) g/dL Albumin (3.5-5.0) g/dL Globulin (1.7-4.1) g/dL Albumin/Globulin Ratio (1.0-2.8) Lipase (23-300) U/L Procalcitonin (<0.5) ng/mL Urine Color Red Urine Appearance Turbid Urine pH 7.5 (4.5-8.0) Ur Specific [place] 1.020 (1.000-1.035) Urine Protein 3+ H (Negative) Urine Glucose (UA) Negative (Negative) g/dL Urine Ketones Trace H (NEGATIVE) Urine Occult Blood 3+ H (Negative) Urine Nitrate Negative (Negative) Urine Bilirubin Negative (NEGATIVE) Urine Urobilinogen 1.0 (0.2) E.U./dL Ur Leukocyte Esterase Trace H (NEGATIVE) Urine RBC >100/hpf H (0-5/HPF) Urine WBC 5-10/hpf H (0-5/HPF) Urine Bacteria None seen (None) Ur Culture Indicated? Specimen cultured 05/17/20 05/17/20 Range/Units 14:10 14:10 WBC (4.5-11.0) X10^3/uL RBC (4.0-5.2) X10^6/uL Hgb (12.0-16.0) g/dL Hct (36-46) % MCV (80-100) fL MCH (26-34) PG MCHC (30-36) % RDW (11.6-14.8) % Plt Count (150-400) X10^3/uL Neut % (Auto) (50-75) % Lymph % (Auto) (25-40) % [place] % (Auto) (3-14) % Eos % (Auto) (2-4) % Baso % (Auto) (0-2) % Neut # (Auto) (0541-8805) /uL Lymph # (Auto) (0326-0246) /uL [place] # (Auto) (0-900) /uL Eos # (Auto) (0-450) /uL Baso # (Auto) (0-100) /uL PT (10.1-12.7) SECONDS INR (0.9-1.3) APTT (26.4-36.2) SECONDS Sodium 135 L (137-145) mmol/L Potassium 3.6 (3.4-5.1) mmol/L Chloride 98 (98-107) mmol/L Carbon Dioxide 25 (22-32) mmol/L BUN 20 H (7-17) mg/dL Creatinine 1.03 (0.52-1.04) mg/dL Estimated GFR 52.2 L (>60) mL/min BUN/Creatinine Ratio 19.4 (6-22) Glucose 107 (80-110) mg/dL Lactate 1.2 (0.7-2.1) mmol/L Calcium 10.4 H (8.4-10.2) mg/dL Total Bilirubin 0.6 (0.2-1.3) mg/dL AST 26 (14-36) IU/L ALT 9 (<35) IU/L Alkaline Phosphatase 89 (38-126) U/L Total Protein 7.7 (6.3-8.2) g/dL Albumin 4.5 (3.5-5.0) g/dL Globulin 3.2 (1.7-4.1) g/dL Albumin/Globulin Ratio 1.4 (1.0-2.8) Lipase 142 (23-300) U/L Procalcitonin 0.10 (<0.5) ng/mL Urine Color Urine Appearance Urine pH (4.5-8.0) Ur Specific [place] (1.000-1.035) Urine Protein (Negative) Urine Glucose (UA) (Negative) g/dL Urine Ketones (NEGATIVE) Urine Occult Blood (Negative) Urine Nitrate (Negative) Urine Bilirubin (NEGATIVE) Urine Urobilinogen (0.2) E.U./dL Ur Leukocyte Esterase (NEGATIVE) Urine RBC (0-5/HPF) Urine WBC (0-5/HPF) Urine Bacteria (None) Ur Culture Indicated? Imaging Data CT scan - abdomen/pelvis: Radiologist's Impression: [address] [id number] Scan ReportSigned Patient: Liyah Garcia AMR#: [id number]: 5Acct:[id number]/Sex: 74 / FDate of Service: 05/17/20Loc: EDAccession Number: [id number] Procedure: CT abdomen pelvis w con Ordering Provider: Kendy Nair D.O. PROCEDURE: CT ABDOMEN PELVIS W CON INDICATIONS: hematuria, chronic abd pain, anorexia, nausea TECHNIQUE: After the administration of intravenous contrast, 5 mm thick sections acquired from the diaphragm to the symphysis. 5 mm coronal and sagittal reformats were acquired. For radiation dose reduction, the following was used: automated exposure control, adjustment of mA and/or kV according to patient size. COMPARISON: Outside Film, CT, CT ABDOMEN PELVIS WITHOUT CONTRAST, 03/28/2018, 13:52. FINDINGS: Image quality: Excellent. ABDOMEN: Lung bases: Lung bases are clear. Heart size is normal. Solid organs: Liver is normal in size and enhancement. Coarse calcifications within the liver most likely the sequela of prior granulomatous disease. Gallbladder appears normal. Biliary system is non dilated. Pancreas enhances normally. Spleen is normal in size and enhancement. No adrenal nodules. There is chronic mild right renal atrophy that does not appear significantly changed when compared to the CT from 03/13. Cysts are seen in both kidneys. There is no significant hydronephrosis Peritoneum and bowel: There is a small hiatal hernia. Multiple diverticula are seen in the colon without signs of acute diverticulitis. No free fluid or air. Nodes and vessels: No retroperitoneal or mesenteric adenopathy by size criteria. Aorta and inferior vena cava are normal in size. Moderate atherosclerotic calcifications are seen in the aorta. Miscellaneous: No ventral hernias. PELVIS: Genitourinary: The bladder is moderately distended. Hyperdense material is seen within the posterior aspect of the bladder that may represent layering thrombus in the setting of hematuria, but could represent a urothelial mass. Lobular contour of the uterus does not appear significantly changed when compared to the CT from 03/28/2018, most commonly secondary to uterine fibroids. Miscellaneous: No inguinal hernias or adenopathy. Bones: Postsurgical changes are seen from right hip arthroplasty with surrounding metallic streak artifact. Degenerative changes are seen in the pubic symphysis and included spine. There is grade 1 anterolisthesis of L3 on L4. No suspicious bony lesions. No vertebral body compression fractures. IMPRESSION: 1. Moderately distended bladder with irregular hypoattenuating lesion posteriorly that may represent thrombus in the setting of hematuria, but a urothelial mass could appear similarly. Recommend Urology consultation. 2. Mild chronic right renal atrophy. No hydronephrosis or nephrolithiasis. No signs of pyelonephritis. 3. Colonic diverticulosis without signs of acute diverticulitis. 4. Fibroid uterus. 5. Small hiatal hernia. Dictated by: Luis Alberto Kent M.D. on 05/17/2020 at 16:27 Approved by: Luis Alberto Kent M.D. on 05/17/2020 at 16:40 ECG Data Attestation: I personally reviewed and interpreted this ECG as follows: Interpretation: Sinus rhythm rate of 69 NE interval 166 QRS of 106 and QTC of [address] elevation depression appreciated. MDM Narrative Medical decision making narrative: This is a 74-year-old female with complaint of hematuria. Patient has had a UTI recently diagnosed and she has a urine culture positive for Enterococcus faecalis from her culture on the 15 of May. It does show sensitivity to her current antibiotic nitrofurantoin. She has a prescription for 7 days worth of antibiotics and has been taking them regularly. Her labs show a hemoglobin of 11, very mild hyponatremia 135, BUN of 20 with a creatinine that appears to be at baseline calcium elevated at 10.4 with unclear etiology. Patient's LFTs do not show any acute changes. Procalcitonin is negative. Her CT does show changes in the bladder which could be thrombus but there is concern for possible mass. This was discussed with Urology. These findings were shared with the patient. She has had hematuria which can be from infection and imaging was obtained today because she has had weight loss over several months, nausea with decreased appetite and no other clear cause. Urology recommendations were to continue antibiotics after 7 days for 1 tablet nightly for 60 days and follow-up for cystoscopy after she has received antibiotics in order to decrease any inflammation from infection and have a better evaluation on cystoscopy. Patient was encouraged to reach out to the urology office if she has not heard from them. All questions were answered. Discharge Plan Departure Patient Disposition: Home Clinical Impression: Acute UTI, Chronic nausea, Hematuria Activity Restrictions/Additional Instructions: Your urine culture from 05/15/20 is positive and shows sensitivity to your current antibiotic. Please continue the current antibiotic that you have been taking. Dr. Leonard asks that you continue your antibiotic once nightly x 60 days. Your imaging shows change within the bladder, this may be blood clot but urologist would like to get a cystoscopy to fully evaluate after you have been treated for your UTI. Prescription to [facility] in [place]. You have increasing hematuria, we may wish to consider having you stop your Plavix but if it is not rapidly worsening I would continue as this helps to protect you from recurrent strokes. Return for fevers, rapidly worsening abdominal or flank pain, persistent vomiting, new weakness, lightheadedness or passing out, black or bloody stools, inability to urinate or rapidly worsening bleeding. Prescriptions: New nitrofurantoin macrocrystal 100 mg capsule 100 mg PO BEDTIME Qty: 60 RF: 0 No Action clopidogrel [Plavix] 75 mg tablet 75 mg PO QDAY Qty: 90 RF: 3 losartan 50 mg tablet 50 mg PO DAILY Qty: 90 RF: 3 hydrochlorothiazide 12.5 mg tablet 12.5 mg PO DAILY Qty: 90 RF: 3 nitrofurantoin monohyd/m-cryst 100 mg capsule 100 mg PO Q12H 5 Days Qty: 10 RF: 0 Referrals: Allan Garrett MD [Primary Care Provider] - Josef Leonard MD [Physician] -
--- NOTE | 2020-05-17 15:56 | DI.CT.S_ITS ---
PROCEDURE: CT ABDOMEN PELVIS W CON INDICATIONS: hematuria, chronic abd pain, anorexia, nausea TECHNIQUE: After the administration of intravenous contrast, 5 mm thick sections acquired from the diaphragm to the symphysis. 5 mm coronal and sagittal reformats were acquired. For radiation dose reduction, the following was used: automated exposure control, adjustment of mA and/or kV according to patient size. COMPARISON: Outside Film, CT, CT ABDOMEN PELVIS WITHOUT CONTRAST, 03/28/2018, 13:52. FINDINGS: Image quality: Excellent. ABDOMEN: Lung bases: Lung bases are clear. Heart size is normal. Solid organs: Liver is normal in size and enhancement. Coarse calcifications within the liver most likely the sequela of prior granulomatous disease. Gallbladder appears normal. Biliary system is non dilated. Pancreas enhances normally. Spleen is normal in size and enhancement. No adrenal nodules. There is chronic mild right renal atrophy that does not appear significantly changed when compared to the CT from 03/28/2018. Cysts are seen in both kidneys. There is no significant hydronephrosis Peritoneum and bowel: There is a small hiatal hernia. Multiple diverticula are seen in the colon without signs of acute diverticulitis. No free fluid or air. Nodes and vessels: No retroperitoneal or mesenteric adenopathy by size criteria. Aorta and inferior vena cava are normal in size. Moderate atherosclerotic calcifications are seen in the aorta. Miscellaneous: No ventral hernias. PELVIS: Genitourinary: The bladder is moderately distended. Hyperdense material is seen within the posterior aspect of the bladder that may represent layering thrombus in the setting of hematuria, but could represent a urothelial mass. Lobular contour of the uterus does not appear significantly changed when compared to the CT from 03/28/2018, most commonly secondary to uterine fibroids. Miscellaneous: No inguinal hernias or adenopathy. Bones: Postsurgical changes are seen from right hip arthroplasty with surrounding metallic streak artifact. Degenerative changes are seen in the pubic symphysis and included spine. There is grade 1 anterolisthesis of L3 on L4. No suspicious bony lesions. No vertebral body compression fractures. IMPRESSION: 1. Moderately distended bladder with irregular hypoattenuating lesion posteriorly that may represent thrombus in the setting of hematuria, but a urothelial mass could appear similarly. Recommend Urology consultation. 2. Mild chronic right renal atrophy. No hydronephrosis or nephrolithiasis. No signs of pyelonephritis. 3. Colonic diverticulosis without signs of acute diverticulitis. 4. Fibroid uterus. 5. Small hiatal hernia. Dictated by: Luis Alberto Kent M.D. on 05/17/2020 at 16:27 Approved by: Luis Alberto Kent M.D. on 05/17/2020 at 16:40
[2020-05-17 17:43] VITALS: BP 140/70; PULSE 72; O2SAT 98
== END 2020-05-17 17:45 | disposition home or self-care (01) ==
PROVIDERS: Emergency Provider Emergency Medicine; PCP Family Medicine
DX: N39.0 Urinary tract infection, site not specified (principal); R11.0 Nausea; R31.9 Hematuria, unspecified
CPT/HCPCS: 36415; 71045; 74177; 80053; 81001; 83605; 83690; 84145; 85025; 85610; 85730; 87040; 87077; 87086; 87185; 87186; 93005; 96360; 99284; Q9967

== ENCOUNTER → 2020-06-16 09:41 | Outpatient (CLI) | payer MEDICARE, SELFPAY ==
[2020-06-16 10:52] LABS: COVID19 -Nasal RAPID Negative (Negative)
== END ==
PROVIDERS: PCP Family Medicine; Visit Provider Specialist
DX: Z20.822 Contact with and (suspected) exposure to COVID-19 (principal)
CPT/HCPCS: 87635; C9803

== ENCOUNTER 2020-06-19 07:29 | Day surgery (SDC) | payer MEDICARE, SELFPAY ==
[2020-06-19] VITALS (7 sets, daily range): BP systolic 119–149; BP diastolic 63–77; PULSE 62–74; RESP 13–15; TEMP 36.3–36.6; O2SAT 90–97; BMI 28.5
--- NOTE | 2020-06-19 | PATH_ITS ---
[facility] Accession Number: [id number] . 01 Material submitted: . gastrointestinal site - GASTRIC BIOPSY . 02 Diagnosis: Stomach, Biopsy: Gastric antral mucosa with no diagnostic abnormality. No evidence of Helicobacter organisms on H/E stain. Negative for intestinal metaplasia. Negative for dysplasia and malignancy. [facility] 06/22/2020 1551 Local . 02 Electronically signed: . Obey Clark MD, PhD, Pathologist NPI- [id number] . 01 Gross description: . GASTRIC BIOPSY: Received in formalin are 2 fragment(s) of christensen, soft tissue measuring 0.1 x 0.1 x 0.1 cm to 0.2 x 0.2 x 0.2 cm submitted entirely in 1 cassette(s) /EVELYN 06/20/20201940 Local . 02 Pathologist provided ICD-10: R10.9 . 02 CPT . 081962 Performed at: 01 [facility] [address] [place] [address], [place], [place] [id number] MD Milind Zaman MD Phone: [phone] Performed at: 02 [facility] [address] [place], [place] [id number] MD Paula Bowman MD Phone: [phone]
[2020-06-19] MEDS: LACTATED RINGERS 1,000 ML 200 ML IV (08:14)
--- NOTE | 2020-06-19 08:33 | PM.PREOP ---
Pre-operative Note Interval Note History & Physical reviewed/Exam performed by Physician: Yes Changes to H&P: No
[2020-06-19] MEDS: LIDOCAINE 4% SOLN 50 ML 20 ML TOP (08:38)
[2020-06-19] MEDS: fentaNYL 250 MCG/5 ML INJ IV (08:39)
[2020-06-19] MEDS: MIDAZOLAM 5 MG/5 ML VIAL IV (08:46)
--- NOTE | 2020-06-19 08:50 | PM.OP.ENDO ---
Operative Date/Time/Diagnoses Date of procedure: 06/19/20 Time of procedure: 08:50 Pre-op diagnosis: Abdominal pain Post-op diagnosis: same Procedure & Clinicians Study performed: Esophagoduodenoscopy Same procedure as scheduled: Yes Indications: Abdominal pain and weight loss Surgeon: Greg Goodman Procedure Notes Procedure in detail: Patient placed in left lateral decubitus position. Time out was performed. Procedural sedation was administered with Versed and Fentanyl. A bite block was placed. the scope was inserted into the mouth and advanced through the esophagus and into the stomach. The stomach was notable for diffuse gastritis no agnes ulcer. Multiple random gastric biopsies were taken with forceps. Duodenum was normal to the 2nd portion. The scope was retroflexed within the stomach and there was a small hiatal hernia. The scope was withdrawn into the esophagus the Z line was seen at 35 cm from the incisions. There was no Moulton's esophagitis or masses or strictures. Stomach was desufflated and scope removed. Patient tolerated procedure well. Sedation minutes: 10 Specimen(s): other (Gastric) Complications: none Impression: Gastritis Post-procedure Recommendations: Reflux diet Plan for aftercare: Increase omeprazole to 40 mg b.i.d. Disposition: same day surgery
== END 2020-06-19 09:33 | disposition home or self-care (01) ==
PROVIDERS: PCP Family Medicine; Referring Provider Family Medicine; Visit Provider Surgery
PROC: 0DJ08ZZ Inspection of Upper Intestinal Tract, Via Natural or Artificial Opening Endoscopic (ICD-10-PCS; CPT 43235; principal; 2020-06-19 08:30)
DX: K29.70 Gastritis, unspecified, without bleeding (principal); K44.9 Diaphragmatic hernia without obstruction or gangrene; R63.4 Abnormal weight loss
CPT/HCPCS: 43239; 99152; J2250; J3010

== ENCOUNTER → 2020-11-07 09:45 | Outpatient (CLI) | payer MEDICARE, SELFPAY ==
[2020-11-07 11:12] LABS: Appearance Urine UA CLOUDY; Bilirubin Urine UA NEGATIVE (NEGATIVE); Color Urine UA YELLOW; Glucose Urine UA NEGATIVE (Negative); Ketones Urine UA NEGATIVE (NEGATIVE); Leukocyte Esterase Urine UA 3+ (NEGATIVE); Nitrite Urine UA NEGATIVE (Negative); Occult Blood Urine UA TRACE-LYSED (Negative); Protein Urine UA 2+ (Negative); Urobilinogen Urine UA 0.2 E.U./dL (0.2)
[2020-11-07 11:20] LABS: pH Urine UA 7.5 (4.5-8.0)
[2020-11-07 11:29] LABS: Bacteria Urine Many (>30); Culture Indicated Urine Cult Not Indicated; RBC Urine 1-5/HPF (0-5/HPF); Squamous Epithelial Cell Urine 5-10 /HPF (0-5/HPF); WBC Urine 10-30/HPF (0-5/HPF)
== END ==
PROVIDERS: PCP Family Medicine; Referring Provider Specialist; Visit Provider Specialist
DX: N39.0 Urinary tract infection, site not specified (principal)
CPT/HCPCS: 81001

== ENCOUNTER → 2020-11-10 09:53 | Outpatient (CLI) | payer MEDICARE, SELFPAY ==
[2020-11-10 10:11] LABS: Appearance Urine UA CLOUDY; Color Urine UA ORANGE
[2020-11-10 10:16] LABS: Bacteria Urine Many (>30); Culture Indicated Urine Specimen Cultured; RBC Urine 5-10/HPF (0-5/HPF); WBC Urine >100/HPF (0-5/HPF)
== END ==
PROVIDERS: PCP Family Medicine; Visit Provider Specialist
DX: N39.0 Urinary tract infection, site not specified (principal)
CPT/HCPCS: 81001; 87077; 87086

== ENCOUNTER → 2020-11-28 08:13 | Outpatient (CLI) | payer MEDICARE, SELFPAY | PROVIDERS: PCP Family Medicine; Visit Provider Specialist | DX: N39.0 Urinary tract infection, site not specified (principal); N95.2 Postmenopausal atrophic vaginitis; R33.9 Retention of urine, unspecified | CPT/HCPCS: 51798; 81002; 87077; 87086; 99214 ==

== ENCOUNTER → 2021-06-19 08:07 | Outpatient (CLI) | payer MEDICARE, SELFPAY | PROVIDERS: PCP Family Medicine; Visit Provider Specialist | DX: R30.0 Dysuria (principal); R33.9 Retention of urine, unspecified; N95.2 Postmenopausal atrophic vaginitis; Z87.440 Personal history of urinary (tract) infections | CPT/HCPCS: 51798; 81002; 87086; 99214 ==

== ENCOUNTER → 2021-08-02 08:08 | Outpatient (CLI) | payer MEDICARE, SELFPAY ==
[2021-08-02 09:13] LABS: Add Manual Diff / Slide Review NO; Basophils Absolute Auto 0 /uL (0-100); Basophils Percent Auto 0.8 % (0-2); Eosinophils Absolute Auto 300 /uL (0-450); Eosinophils Percent Auto 5.4 % (2-4); Hematocrit 33.8 % (36-46); Hemoglobin 11.4 g/dL (12.0-16.0); Lymphocytes Absolute Auto 1700 /uL (1100-4500); Lymphocytes Percent Auto 30.5 % (25-40); Mean Corpuscular HGB Conc 33.8 % (30-36); Mean Corpuscular Hemoglobin 32.3 PG (26-34); Mean Corpuscular Volume 95.6 fL (80-100); Monocytes Absolute Auto 500 /uL (0-900); Monocytes Percent Auto 9.2 % (3-14); Neutrophils Absolute Auto 2900 /uL (1500-7000); Neutrophils Percent Auto 54.1 % (50-75); Platelet Count 222 X10^3/uL (150-400); Red Blood Cell Count 3.53 X10^6/uL (4.0-5.2); Red Cell Distribution Width 12.9 % (11.6-14.8); White Blood Cell Count 5.4 X10^3/uL (4.5-11.0)
[2021-08-02 09:39] LABS: Alanine Aminotransferase 8 IU/L (<35); Albumin Globulin Ratio 1.5 (1.0-2.8); Alkaline Phosphatase 68 U/L (38-126); Aspartate Aminotransferase 20 IU/L (14-36); BUN Creatinine Ratio 15.5 (6-22); Bilirubin Total 0.7 mg/dL (0.2-1.3); Blood Urea Nitrogen 16 mg/dL (7-17); Calcium 9.1 mg/dL (8.4-10.2); Carbon Dioxide 26 mmol/L (22-32); Chloride 105 mmol/L (98-107); Cholesterol 263 mg/dL (140-199); Estimated Glomerular Filt Rate 56 mL/min (>60); Globulin 2.7 g/dL (1.7-4.1); Glucose 123 mg/dL (80-110); HDL Cholesterol 57 mg/dL (40-60); HEMOLYSIS < 15 (0-50); LDL Cholesterol Calculated 181 mg/dL (<100); Potassium 3.9 mmol/L (3.4-5.1); Sodium 139 mmol/L (137-145); Total Protein 6.7 g/dL (6.3-8.2); Triglycerides 123 mg/dL (35-150)
[2021-08-02 10:07] LABS: TSH w/ Reflex to FT4 2.29 uIU/mL (0.47-4.68)
== END ==
PROVIDERS: PCP Family Medicine; Referring Provider Family Medicine; Visit Provider Family Medicine
DX: E78.5 Hyperlipidemia, unspecified (principal); I10 Essential (primary) hypertension; I63.9 Cerebral infarction, unspecified
CPT/HCPCS: 36415; 80053; 80061; 84443; 85025

== ENCOUNTER → 2022-06-11 10:43 | Outpatient (CLI) | payer MEDICARE, SELFPAY ==
[2022-06-11 13:36] LABS: Appearance Urine UA CLEAR; Bilirubin Urine UA NEGATIVE (NEGATIVE); Color Urine UA YELLOW; Glucose Urine UA NEGATIVE (Negative); Ketones Urine UA NEGATIVE (NEGATIVE); Leukocyte Esterase Urine UA 3+ (NEGATIVE); Nitrite Urine UA NEGATIVE (Negative); Occult Blood Urine UA TRACE-INTACT (Negative); Protein Urine UA 1+ (Negative); Specific Gravity Urine UA 1.015 (1.000-1.035); Urobilinogen Urine UA 0.2 E.U./dL (0.2)
[2022-06-11 13:48] LABS: pH Urine UA 7.5 (4.5-8.0)
[2022-06-11 13:55] LABS: Bacteria Urine Many (>30); Culture Indicated Urine Specimen Cultured; RBC Urine None Seen (0-5/HPF); Squamous Epithelial Cell Urine 1-5 /HPF (0-5/HPF); WBC Urine 30-100/HPF (0-5/HPF)
== END ==
PROVIDERS: PCP Family Medicine; Referring Provider Specialist; Visit Provider Specialist
DX: R33.9 Retention of urine, unspecified (principal); N30.00 Acute cystitis without hematuria
CPT/HCPCS: 81001; 87086

== ENCOUNTER → 2022-06-17 09:22 | Outpatient (CLI) | payer MEDICARE, SELFPAY ==
--- NOTE | 2022-06-17 09:25 | DI.MG.S_ITS ---
BILATERAL DIGITAL DIAGNOSTIC MAMMOGRAM 3D/2D: 06/17/2022 CLINICAL: Left breast lump. Comparison is made to exams dated: 02/22/2016 mammogram, 10/15/2013 mammogram, and 06/28/2010 mammogram - [facility]. There are scattered areas of fibroglandular density in both breasts (category b / 25%-50% glandular tissue). There is a new 1.6 cm mass with an obscured margin in the left breast at 2 o'clock middle depth. This correlates as palpated. No other significant masses, calcifications, or other findings are seen in either breast. Benign calcifications in both breasts. IMPRESSION: INCOMPLETE: NEEDS ADDITIONAL IMAGING EVALUATION The new 1.6 cm mass in the left breast is indeterminate. Ultrasound is dictated separately. Based on the Tyrer Cuzick model (a risk assessment model) the patient's lifetime risk is 3.1% and her 10 year risk is 0.0%. According to the ACR, ACS, and NCCN guidelines, an annual breast MRI exam along with mammogram is recommended if the patient's lifetime risk is 20% or greater. This exam was interpreted at Station ID: [id number]. NOTE: For mammograms, a report in lay terms will be sent to the patient. Approximately 15% of breast malignancies will not be visualized mammographically. In the management of a palpable breast mass, a negative mammogram must not discourage biopsy of a clinically suspicious lesion. Electronically Signed By: Isaak Rodas M.D. slc/:06/17/2022 10:35:53 ACR BI-RADS Category 0: Incomplete [id number]
--- NOTE | 2022-06-17 09:25 | DI.US.S_ITS ---
LIMITED ULTRASOUND OF LEFT BREAST AND AXILLA: 06/17/2022 CLINICAL: Palpable left breast lump. Comparison is made to exams dated: 02/22/2016 mammogram and 10/15/2013 mammogram - [facility]. Color flow and real-time ultrasound of the left breast 2 o'clock, and axilla regions were performed. Bush scale images of the real-time examination were reviewed. There is a 2.1 cm x 1.9 cm x 1.1 cm irregular mass in the left breast at 2 o'clock posterior depth 8 cm from the nipple. This correlates as palpated. Color flow imaging demonstrates that there is vascularity present. No significant abnormalities were seen sonographically in the left axilla. IMPRESSION: HIGHLY SUGGESTIVE OF MALIGNANCY The 2.1 cm x 1.9 cm x 1.1 cm irregular mass in the left breast is highly suggestive of malignancy. An ultrasound guided biopsy is recommended. Exam findings were discussed with the patient. Mammogram will also be preformed today. This exam was interpreted at Station ID: [id number]. Electronically Signed By: Isaak Rodas M.D. slc/:06/17/2022 10:06:07 letter sent: Biopsy Required Ultrasound BI-RADS: 5 Highly suggestive of malignancy
== END ==
PROVIDERS: PCP Family Medicine; Referring Provider Family Medicine; Visit Provider Family Medicine
DX: N63.21 Unspecified lump in the left breast, upper outer quadrant (principal); R92.8 Other abnormal and inconclusive findings on diagnostic imaging of breast
CPT/HCPCS: 76642; 77066; G0279

== ENCOUNTER → 2022-06-28 08:40 | Outpatient (CLI) | payer MEDICARE, SELFPAY ==
--- NOTE | 2022-06-28 | DI.MG.S_ITS ---
UNILATERAL LEFT DIGITAL DIAGNOSTIC MAMMOGRAM 3D/2D: 06/28/2022 CLINICAL: Post clip left. Comparison is made to exams dated: 06/17/2022 ultrasound, 06/17/2022 mammogram, 02/22/2016 mammogram, and 10/15/2013 mammogram - [facility]. There is a biopsy clip in the area of biopsy in the left breast. IMPRESSION: POST PROCEDURE MAMMOGRAM FOR MARKER PLACEMENT The biopsy clip is in the area of biopsy in the left breast. This exam was interpreted at Station ID: [id number]. NOTE: For mammograms, a report in lay terms will be sent to the patient. Approximately 15% of breast malignancies will not be visualized mammographically. In the management of a palpable breast mass, a negative mammogram must not discourage biopsy of a clinically suspicious lesion. Electronically Signed By: Yara Quintanilla M.D. fx/:06/28/2022 15:54:14 ACR BI-RADS Category Post-procedure mammogram for marker placement
--- NOTE | 2022-06-28 | PATH_ITS ---
[facility] Accession Number: [id number] No. of containers..01 Tissue . 01 Material submitted: . breast - LEFT BREAST MASS 2:00 8CMFN . 01 Diagnosis: A. Left Breast Mass, 2 o'clock, 8 cm From The Nipple, Biopsy: Invasive (ductal) carcinoma with micropapillary features, grade 2 of 3 ([place] combined histologic score of 7/9), with the following charasteristics: 1. Nuclear grade: Intermediate. (2/3) 2. Mitotic rate: Intermediate. (2/3) 3. Tubular differentiation: Little. (3/3) 4. Tumor size: 10 mm in largest extent, involving five cores. 5. Ductal carcinoma in situ: Not identified. 6. Lymphatic space invasion: Not identified in this specimen. 7. Calcifications: Not present. 8. Prognostic markers: - Estrogen receptor status: Positive (more than 99% of tumor cells staining, staining intensity: strong). - Progesterone receptor status: Positive (20% of tumor cells staining, staining intensity: weak to moderate). - HER2: Equivocal for protein overexpression by immunohistochemistry (2+); HER2 gene amplification by FISH studies is pending, and results will be reported in an addendum. [facility] 07/04/2022 1732 Local . 01 Electronically signed: . Nida Anthony MD, Pathologist NPI- [id number] . 01 Gross description: . The specimen is received in formalin labeled with the patient's name, , and US bx breast, and consists of five yellow-christensen needle core biopsies ranging in length from 0.8 cm to 1.6 cm and averaging 0.1 cm in diameter. The specimen is inked black and is submitted entirely in cassette A1. . The specimen was removed on 06/28/2022 at 1035, time in formalin not provided, cold ischemic time cannot be calculated, total fixation time is approximately 52 hours. ([id number]) /FRR 06/29/2022 1646 Local . 01 Microscopic: . A panel of immunostains is obtained on block A1 in order to evaluate the invasive carcinoma, with appropriately staining external controls, and the following is the immunohistochemical profile: . D2-40: Negative around tumor cell nests (in support of no evidence of lymphovascular space invasion in this specimen). P63: Lost around tumor cell nests, in support of invasive carcinoma. Smooth muscle myosin: Lost around tumor cell nests, in support of invasive carcinoma. JERRICA: Staining at the periphery of cell nests (consistent with inside out pattern), in support of micropapillary features. . Predictive marker immunohistochemical studies are performed on block A1 with the invasive carcinoma showing the following results: . Estrogen receptor (SP1): Positive (more than 99% tumor cells staining, staining intensity: strong). Progesterone receptor (1E2): Positive (20% tumor cells staining, staining intensity: weak to moderate). Her2 (4B5): Equivocal for protein overexpression by immunohistochemistry (2+); HER2 gene amplification by FISH studies is pending, and results will be reported in an addendum. . . Internal controls for ER and MI are positive. Cold ischemic time is <5 minutes. The scoring criteria for breast biomarkers by immunohistochemistry is based on the ASCO/CAP guidelines (Xuan AC et al, J Clin Oncol: 2017Aug 19;36(20):1033-6110 and Mayito ME et al, Arch Pathol Lab Med: 2009;134(6):907-22). Deparaffinized sections of formalin fixed tissue (along with appropriate positive controls) are incubated with the above antibody(s). Using the automated [place] stainer, tissue is incubated with the designated antibody which is then localized by a non-biotin, dual polymer detection system. The external controls are reviewed for appropriate reactivity and found to be adequate. Results on the target cell population are indicated above. These tests have not been validated on decalcified tissue. This test was developed and its performance characteristics determined by [facility]. It has not been cleared or approved by the U.S. Food and Drug Administration. The FDA has determined that such clearance or approval is not necessary. This test is used for clinical purposes. It should not be regarded as investigational or for research. . 01 Pathologist provided ICD-10: C50.912 . 01 CPT . 237459, F53153, T21668, 170189, 030292, 426717 Performed at: 01 [facility] [address] [place] [address], [place], [place] [id number] MD Milind Zaman MD Phone: [phone]
--- NOTE | 2022-06-28 10:31 | DI.US.S_ITS ---
ULTRASOUND GUIDED BIOPSY LEFT BREAST WITH POST MAMMOGRAPHIC AND ULTRASOUND IMAGIN06/28/2022 CLINICAL: Left breast mass. PATIENT CONSENT: Risks (minor bleeding, infection, vasovagal reaction and repeat procedure), benefits and alternatives were explained to the patient and written informed consent was obtained. Correlation is made to exams dated: 06/17/2022 ultrasound and 06/17/2022 mammogram - [facility]. An ultrasound guided biopsy using real-time ultrasound was performed for the oval mass located in the left breast at 2 o'clock anterior depth. This was described on the previous ultrasound report. The skin was prepped in the usual manner. Local anesthetic was administered to the access site. The abnormality was approached from the lateral aspect. A 16 gauge biopsy needle was placed adjacent to the abnormality under ultrasound guidance. Once the needle was documented to be in the correct location, five specimens were obtained using an Achieve automated firing device. Post procedure mammographic and ultrasound imaging demonstrates the clip at the targeted area. The specimens were sent to the laboratory for pathological analysis. IMPRESSION: ULTRASOUND GUIDED BIOPSY MALIGNANT Ultrasound guided biopsy of the mass in the left breast anterior depth was successful. Pathology indicates malignant invasive ductal carcinoma (ID). Pathology results are concordant with imaging findings. Surgical/oncologic consultation recommended. This exam was interpreted at Station ID: [id number]. Yara Chun M.D. fx,lc/:07/05/2022 12:17:09
== END ==
PROVIDERS: PCP Family Medicine; Referring Provider Family Medicine; Visit Provider Family Medicine
DX: R92.8 Other abnormal and inconclusive findings on diagnostic imaging of breast (principal); N63.21 Unspecified lump in the left breast, upper outer quadrant
CPT/HCPCS: 19083; 77065

== ENCOUNTER → 2022-09-04 08:51 | Outpatient (CLI) | payer MEDICARE, SELFPAY ==
--- NOTE | 2022-09-04 | DI.MG.S_ITS ---
SPECIMEN: 09/04/2022 CLINICAL: Left breast speciman. Correlation is made to exams dated: 06/28/2022 ultrasound biopsy, 06/28/2022 mammogram, 06/17/2022 ultrasound, and 06/17/2022 mammogram - [facility]. Specimen contains the biopsy clip. IMPRESSION: SPECIMEN Specimen contains the biopsy clip. This exam was interpreted at Station ID: [id number]. Rich Chun M.D. lc/:09/04/2022 13:02:04
--- NOTE | 2022-09-04 | DI.NM.S_ITS ---
PROCEDURE: NM SENTINEL NODE INJECT ONLY RADIOPHARMACEUTICAL: 0.5-1.0 mCi Millipore filtered Tc-99m sulfur colloid. INDICATIONS: LEFT BREAST CANCER COMPARISON: None. PROCEDURE: The area around the nipple was prepped and draped in a sterile fashion. Tc-99m sulfur colloid was injected intra-dermally around the outer edge of the areola in the left breast. No image was obtained. IMPRESSION: Administration of radiotracer into the left breast periareolar region for intra-operative sentinel lymph node localization. Dictated by: Lucia Garcia M.D. on 09/04/2022 at 13:49 Approved by: Lucia Garcia M.D. on 09/04/2022 at 13:49
== END ==
PROVIDERS: PCP Family Medicine; Referring Provider Surgery; Visit Provider Surgery
DX: C50.912 Malignant neoplasm of unspecified site of left female breast (principal)
CPT/HCPCS: 38792; 76098; A9541

== ENCOUNTER 2022-09-04 08:52 | Day surgery (SDC) | payer MEDICARE, SELFPAY ==
[2022-09-04] VITALS (12 sets, daily range): BP systolic 128–174; BP diastolic 53–89; PULSE 65–91; RESP 9–16; TEMP 36–36.6; O2SAT 92–97; BMI 27.4
--- NOTE | 2022-09-04 | PATH_ITS ---
[facility] Accession Number: [id number] No. of containers..02 Tissue . 01 Material submitted: . PART A: breast - LEFT BREAST PART B: breast - LEFT SENTINEL NODE . 01 Clinical history: . A) SHORT STITCH SUPERIOR, LONG STITCH LATERAL - ANTERIOR IS GREEN INFERIOR IS BLUE, LATERAL IS ORANGE . 01 Diagnosis: A. Left Breast, Excision: Invasive ductal carcinoma, grade 2 of 3 ([place] combined histologic grade 7/9), with the following characteristics: 1. Tumor size (invasive component): 2 tumor foci, largest is 22 mm (by gross measurement), and a separate 2 mm focus (by microscopic measurement, Block A10). 2. Nuclear pleomorphism: High. (3/3) 3. Mitotic rate: Intermediate. (2/3) 4. Tubular differentiation: Intermediate. (2/3) 5. Ductal carcinoma in situ: - A rare minute focus (1 mm, block A3), intermediate grade, without necrosis. 6. Calcifications: Present in association with media of vessels. 7. Lymphatic invasion: Not identified. 8. Resection margins: - Invasive carcinoma: Negative, with the closest distance to the following margins as follows: - Anterior: Less than 0.3 mm (block A3). - All remaining margins: More than 2 mm. - DCIS: Negative, more than 2 mm from all margins. 9. Prognostic markers: - Reported on prior biopsy ([id number], 06/29/2022), with the following features: - Estrogen receptor: Positive. - Progesterone receptor: Positive. - HER2: Negative for HER2 gene amplication by FISH studies. - Repeat Her2 on excision specimen (block A3): Equivocal for protein overexpression by immunohistochemistry; Her2 gene amplification by FISH studies is pending and results will be reported in an addendum. 10. Regional lymph node status: Three sentinel lymph nodes; negative for malignancy (see part B below). - No additional lymph nodes are identified within excision specimen. 11. Additional findings: - Skin, nipple, and skeletal muscle are not present for evaluation. - Background breast with focal usual ductal hyperplasia and apocrine metaplasia. - Biopsy clip/site changes seen. 12. Pathologic stage: pT2 pN0(sn) . B. Left [place] Lymph Node, Dissection: Three sentinel lymph nodes, negative for malignancy (0/3). MRV 09/12/2022 0709 Local . 01 Electronically signed: . Nida Anthony MD, Pathologist NPI- [id number] . 01 Gross description: . A. Received: In formalin labeled with the patient's name, , and left breast tissue short stitch superior, long stitch lateral. Specimen: An oriented left lumpectomy. Weight: 50 g. Measurement: 6.2 cm anterior to posterior, 6.0 cm superior to inferior, 2.7 cm medial to lateral. Skin ellipse: Absent. Wire: Absent. Margins: Inked by the surgeon as follows: Anterior green, inferior blue, lateral orange, medial yellow, posterior black, superior red and with a short suture in the red-inked designating superior and a long suture in the orange inked designating lateral per the requisition. The inking is reinforced at the bench. Sliced: From anterior to posterior into 12 slices. Lesion: One. Description: An ill-defined, christensen, firm mass. Size: 2.2 x 1.9 x 1.7 cm. Slices involved: Slices 1-6. Biopsy site: Present with a Vision biopsy clip identified in slice 5. Distance to margins: The lesion grossly approaches the green, yellow, and blue margins and is 0.6 cm from the orange margin and greater than 1 cm from all remaining margins. Other: The remaining cut surfaces are yellow to white fibroadipose tissue with fibrous tissue occupying approximately 30% of the cut surface. No additional lesions are identified. Fixation time: The specimen was removed on 09/04/2022, time not provided, cold ischemic time cannot be calculated, total fixation time is approximately 65 hours. Law Writer sections are submitted as follows: A1-A2: Law Writer slice 1 perpendicular. A3: Law Writer slice 3 lesion to green and blue margins. A4-A5: Composite hospital sales representative slice 4 lesion to yellow, blue, and nearest orange margin. A6-A8: Entire composite slice 5 with biopsy site. A9: Law Writer slice 7 no lesion. A10: Law Writer slice 10. A11-A12: Law Writer slice 12 black margin perpendicular. B. Received in formalin, labeled with the patient's name, , and sentinel node left, and consists of a fragment of yellow lobulated adipose tissue measuring 3.7 x 2.5 x 1.5 cm. Palpation reveals three christensen lymph node candidates ranging from 0.4 cm to 1.3 cm in greatest dimension. Law Writer sections are submitted as follows: B1: Single bisected lymph node candidate. B2: Two intact lymph node candidates ([id number]) /R 09/12/2022 0626 Local . 01 Microscopic: . A panel of immunostains is performed on blocks A3 and A8, in order to assess for ductal carcinoma in situ given the extensive cribriform appearance of the carcinoma, with appropriately staining external controls. In addition, given that there is more tumor within the excision specimen compared to the biopsy, and that higher nuclear grade is seen, HER2 prognostic marker by immunohistochemistry is repeated on block A3. The following is a summary of the immunoprofile: . Smooth muscle myosin and p63 (A3 and A8): Diffusely negative in block A8, in block A3, focal positivity is seen around a 1 mm focus of DCIS. . D2-40 (A3): no definite immunoreactivity around tumor nests, in support of no evidence of lymphatic space invasion. . One predictive marker immunohistochemical study is performed on the excision specimen block A3 with the invasive carcinoma showing the following results: . Her2 (4B5): Equivocal for protein overexpression by immunohistochemistry (2+); HER2 gene amplification by FISH studies will be performed and results will be reported in an addendum. . Cold ischemic time is <5 minutes. The scoring criteria for breast biomarkers by immunohistochemistry is based on the ASCO/CAP guidelines (Xuan AC et al, J Clin Oncol: 2017Aug 19;36(20):1751-3214 and Mayito ANDRES et al, Arch Pathol Lab Med: 2009;134(6):907-22). Deparaffinized sections of formalin fixed tissue (along with appropriate positive controls) are incubated with the above antibody(s). Using the automated [place] stainer, tissue is incubated with the designated antibody which is then localized by a non-biotin, dual polymer detection system. The external controls are reviewed for appropriate reactivity and found to be adequate. Results on the target cell population are indicated above. These tests have not been validated on decalcified tissue. This test was developed and its performance characteristics determined by [facility]. It has not been cleared or approved by the U.S. Food and Drug Administration. The FDA has determined that such clearance or approval is not necessary. This test is used for clinical purposes. It should not be regarded as investigational or for research. . 01 Pathologist provided ICD-10: C50.912 . 01 CPT . 735948, 435799, F91289, R13300, 687244 Specimen Comment: A courtesy copy of this report has been sent to [phone] Performed at: 01 [facility] [address] [place] [address], [place], [place] [id number] MD Milind Zaman MD Phone: [phone]
[2022-09-04] MEDS: LACTATED RINGERS 1,000 ML 100 ML IV ×2 (09:19→13:59)
--- NOTE | 2022-09-04 11:31 | PM.HP.1 ---
History of Present Illness History of Present Illness Date Patient Seen: 09/04/22 Time Patient Seen: 11:34 Chief complaint: [facility] [place] Narrative: 77-year-old woman with left breast cancer here for left lumpectomy with sentinel lymph node biopsy. Imaging -Ultrasound and mammogram LEFT Breast: 1.6 cm mass, 2 o'clock position, middle depth Pathology (core needle biopsy) ?-invasive ductal carcinoma, ER Positive, DE Positive, HER2 Negative, Grade2, DCIS not identified, Lymphovascular invasion negative. [facility] Medical History Acute UTI Arthritis, lumbar spine Chicken pox (~1949) Hearing deficit History of recurrent UTI (urinary tract infection) Left leg weakness Measles (~1950) Mumps (~1953) Postmenopausal atrophic vaginitis Recurrent UTI (urinary tract infection) Retention of urine Rosacea (~1997) Stroke (~2009) Vision disorder Surgical History Anesthesia History of hip replacement (~2014) History of tonsillectomy (~1948) History of total right knee replacement (TKR) (~06/04/17) Status post appendectomy (~1957) Status post dilation and curettage (~1998) Family History Father Prostate cancer Mother Hypertension Heart disease Gallstones Grandfather No problems noted. Grandmother No problems noted. Social History marital status: household members: spouse lives independently: Yes occupational status: employed Smoking Status: Never smoker alcohol intake: current substance use type: does not use Meds Home Medications and Allergies Home Medications Medication Instructions Recorded Confirmed Type estradiol 0.01% (0.1 mg/gram) 1 g vaginal 2XW #42.5 grams 08/29/20 09/04/22 Rx vaginal cream (Estrace) tamsulosin 0.4 mg capsule 0.4 mg PO BEDTIME #90 caps 06/29/21 09/04/22 Rx cholecalciferol (vitamin D3) 50 50 mcg PO DAILY 07/16/21 09/04/22 History mcg (2,000 unit) tablet cyanocobalamin (vitamin B-12) 1,000 mcg PO DAILY 07/16/21 09/04/22 History 1,000 mcg tablet (Vitamin B-12) uzjivvpbkmax-Wn-yuxe-minerals 1 tab PO DAILY 07/16/21 09/04/22 History losartan 50 mg tablet 50 mg PO DAILY #90 tabs 08/28/21 09/04/22 Rx clopidogrel 75 mg tablet 75 mg PO DAILY #90 tabs 08/09/22 09/04/22 Rx hydrochlorothiazide 12.5 mg tablet 12.5 mg PO DAILY #90 tabs 08/09/22 09/04/22 Rx Allergies Allergy/AdvReac Type Severity Reaction Status Date / Time No Known Drug Allergies Allergy Verified 09/04/22 09:04 Exam Vital Signs (past 8 hours): - 09/04/22 09:08 Temperature 96.8 F L Pulse Rate 65 Respiratory Rate 16 Blood Pressure 174/68 H Pulse Oximetry 97 Oxygen Delivery Method Room Air Oxygen Delivery Method Room Air Narrative Exam Narrative: Gen adult woman alert oriented no acute distress Chest left chest wall marked with my initials Assessment & Plan Assessment and plan (1) Malignant neoplasm of left breast: Qualifiers: Breast location: upper outer quadrant of breast Estrogen receptor status: positive Patient sex: female Qualified Code(s): C50.412 - Malignant neoplasm of upper-outer quadrant of left female breast; Z17.0 - Estrogen receptor positive status [ER+] Status: Acute Assessment & Plan narrative: 77-year-old woman with left breast cancer here for left lumpectomy and sentinel lymph node biopsy. Overview of the operation was again discussed with the patient at the bedside. Operative risks including hemorrhage, infection, lymphedema nerve injury and need for re-resection of margins were discussed. Questions have been answered she is in agreement with this plan. She provides her written and verbal consent to proceed.
[2022-09-04] MEDS: CEFAZOLIN 2 GM/100 ML PREMIX 100 ML IV (12:10)
[2022-09-04] MEDS: METHYLENE BLUE 50 MG/10 ML VIAL INJ (12:13)
[2022-09-04] MEDS: ACETAMINOPHEN IV 1,000 MG/100 ML VIAL 400 MG IV (12:15)
--- NOTE | 2022-09-04 12:33 | SUR.OPER ---
Supine on padded OR bed, head on pillow, right arm secured on padded arm boards at <90 degrees abduction, Left arm sterile draped and in control of the Surgeon, legs uncrossed, safety belt at thigh, tape over blanket over lower legs.
[2022-09-04] MEDS: BUPIVACAINE 0.25% (PF) VIAL 30 ML INJ (13:00)
[2022-09-04] MEDS: HYDROMORPHONE 2 MG INJ IV ×3 (13:42→14:08)
--- NOTE | 2022-09-04 13:45 | PM.OP.1 ---
Operative Date/Time/Diagnoses Date of procedure: 09/04/22 Time of procedure: 13:45 Pre-op diagnosis: Left breast cancer Post-op diagnosis: same Procedure & Clinicians Procedure: Left lumpectomy with sentinel lymph node biopsy Same procedure as scheduled: Yes Indications: 2 cm palpable left breast mass biopsy-proven ductal carcinoma hormone receptor positive HER2 negative here for breast conserving therapy Surgeon: Greg Peters Yes if Unassisted: Yes Anesthesia Type: General Operative Notes Findings: Palpable 2-3 cm mass of the left breast. Specimen(s): other (Left breast mass. Left sentinel lymph nodes) Estimated Blood Loss (mL): 20 Procedure in detail: Patient underwent a sentinel lymph node radiotracer administration prior to procedure. They were brought to the operating room and placed supine on the table. Bilateral lower extremity compression devices were applied. They were intubated with an LMA. 1 ml of methlyene blue mixed w 4 ml saline was injected into the dermal space around the areola and massaged into the tissue for 5 minutes. They were prepped and draped in sterile fashion. Time-out was performed. They recieved ancef prior to incision A curvilinear incision on the lateral aspect of the left breast was made and subcutaneous tissues were divided. The mass approximately 2-3 cm was palpable and was excised from the surrounding parenchyma. Specimen was marked short stitch superior long stitch lateral in addition to standard margin painting. Imaging demonstrated that the specimen contained the clip. 4 surgical clips were placed in the wound cavity. An incision was made in the left axilla 2 cm below the hair bearing region. Dissection was carried down through the subcutaneous tissue towards the chest wall guided by the Neoprobe. A small cluster of lymph nodes were identified, the sentinel node was slightly blue in its appearance and the 10 sec count was 80. The node was removed the tissue was ligated with hemoclips. The background count following removal of the node was minimal there were no other blue appearing nodes or lymphadenopathy. Hemostasis was achieved. The subcutaneous tissue was closed with vicryl the skin with 4-o monocryl followed by dermabond. Complications: none Post-operative Condition: stable Disposition: same day surgery
[2022-09-04] MEDS: ONDANSETRON 4 MG/2 ML INJ IV ×2 (13:54→14:16)
--- NOTE | 2022-09-04 14:13 | SUR.PHASEI ---
Patient reported face felt numb, Dr. Goodman notified. No new orders. Sensation and movement intact.
[2022-09-04] MEDS: LORazepam 2 MG/ML INJ 0.25 MG IV (14:33)
--- NOTE | 2022-09-04 14:35 | SUR.PHASEI ---
Patient reported nausea returning and that her arms felt numb. Movement, sensation seem to be intact. VS stable. Dr. Weiner called and updated, VVO ativan 0.25mg IV x1.
== END 2022-09-04 16:29 | disposition home or self-care (01) ==
PROVIDERS: PCP Family Medicine; Referring Provider Surgery; Visit Provider Surgery
PROC: (CPT 19301; principal; 2022-09-04 12:30)
DX: C50.412 Malignant neoplasm of upper-outer quadrant of left female breast (principal); Z17.0 Estrogen receptor positive status [ER+]
CPT/HCPCS: 38500; 19125; 19281; 38792; 76098; A9541; C1819; J0131; J0690; J1100; J1170; J2060; J2405; J2704; J3010; J3490; Q9968

== ENCOUNTER → 2022-09-12 09:02 | Outpatient (CLI) | payer MEDICARE, SELFPAY ==
[2022-09-12 09:19] LABS: Add Manual Diff / Slide Review NO; Basophils Absolute Auto 100 /uL (0-100); Eosinophils Absolute Auto 200 /uL (0-450); Eosinophils Percent Auto 4.4 % (2-4); Hematocrit 37.2 % (36-46); Hemoglobin 12.7 g/dL (12.0-16.0); Lymphocytes Absolute Auto 1600 /uL (1100-4500); Lymphocytes Percent Auto 29.5 % (25-40); Mean Corpuscular HGB Conc 34.3 % (30-36); Mean Corpuscular Volume 93.4 fL (80-100); Monocytes Absolute Auto 600 /uL (0-900); Monocytes Percent Auto 11.2 % (3-14); Neutrophils Absolute Auto 3000 /uL (1500-7000); Neutrophils Percent Auto 53.9 % (50-75); Platelet Count 267 X10^3/uL (150-400); Red Blood Cell Count 3.98 X10^6/uL (4.0-5.2); Red Cell Distribution Width 13.2 % (11.6-14.8); White Blood Cell Count 5.6 X10^3/uL (4.5-11.0)
[2022-09-12 10:03] LABS: Alanine Aminotransferase 11 IU/L (<35); Albumin Globulin Ratio 1.3 (1.0-2.8); Alkaline Phosphatase 83 U/L (38-126); Aspartate Aminotransferase 19 IU/L (14-36); BUN Creatinine Ratio 14.9 (6-22); Bilirubin Total 0.6 mg/dL (0.2-1.3); Blood Urea Nitrogen 17 mg/dL (7-17); Calcium 9.3 mg/dL (8.4-10.2); Carbon Dioxide 27 mmol/L (22-32); Chloride 102 mmol/L (98-107); Cholesterol 305 mg/dL (140-199); Estimated Glomerular Filt Rate 49 mL/min (>60); Globulin 3.2 g/dL (1.7-4.1); Glucose 111 mg/dL (80-110); HDL Cholesterol 57 mg/dL (40-60); HEMOLYSIS < 15 (0-50); LDL Cholesterol Calculated 218 mg/dL (<100); Potassium 4.1 mmol/L (3.4-5.1); Sodium 136 mmol/L (137-145); Total Protein 7.2 g/dL (6.3-8.2); Triglycerides 150 mg/dL (35-150)
[2022-09-12 10:30] LABS: TSH w/ Reflex to FT4 1.68 uIU/mL (0.47-4.68)
== END ==
PROVIDERS: PCP Family Medicine; Referring Provider Family Medicine; Visit Provider Family Medicine
DX: I10 Essential (primary) hypertension (principal); C50.912 Malignant neoplasm of unspecified site of left female breast; E78.5 Hyperlipidemia, unspecified; I63.9 Cerebral infarction, unspecified
CPT/HCPCS: 36415; 80053; 80061; 84443; 85025

== ENCOUNTER → 2023-08-04 10:17 | Outpatient (CLI) | payer MEDICARE, SELFPAY ==
--- NOTE | 2023-08-04 10:19 | DI.MG.S_ITS ---
BILATERAL DIGITAL DIAGNOSTIC MAMMOGRAM 3D/2D POST LUMPECTOMY: 08/04/2023 CLINICAL: Personal history of left breast cancer. First Follow up, since diagnosis. Comparison is made to exams dated: 06/28/2022 mammogram, 06/17/2022 mammogram, 02/22/2016 mammogram, and 10/15/2013 mammogram - [facility]. Both breasts are heterogeneously dense, which may obscure small masses (category c / 51-75% glandular tissue). There are benign calcifications in both breasts. There also are benign post operative findings in the left breast. No significant masses, calcifications, or other findings are seen in either breast. There has been no significant interval change. IMPRESSION: BENIGN There is no mammographic evidence of malignancy. A 1 year screening mammogram is recommended. This exam was interpreted at Station ID: [id number]. NOTE: For mammograms, a report in lay terms will be sent to the patient. Approximately 15% of breast malignancies will not be visualized mammographically. In the management of a palpable breast mass, a negative mammogram must not discourage biopsy of a clinically suspicious lesion. Electronically Signed By: Rich bustamante/shamir:08/04/2023 10:41:38 letter sent: Normal Exam ACR BI-RADS Category 2: Benign Finding(s) 3342F
== END ==
PROVIDERS: PCP Family Medicine; Referring Provider Surgery; Visit Provider Surgery
DX: C50.412 Malignant neoplasm of upper-outer quadrant of left female breast (principal); Z17.0 Estrogen receptor positive status [ER+]; R92.333 Mammographic heterogeneous density, bilateral breasts
CPT/HCPCS: 77066; G0279

== ENCOUNTER → 2023-09-03 08:00 | Outpatient (CLI) | payer MEDICARE, SELFPAY ==
[2023-09-03 10:08] LABS: Add Manual Diff / Slide Review NO; Basophils Absolute Auto 0 /uL (0-100); Basophils Percent Auto 0.8 % (0-2); Eosinophils Absolute Auto 400 /uL (0-450); Eosinophils Percent Auto 7.7 % (2-4); Hematocrit 33.8 % (36-46); Hemoglobin 11.6 g/dL (12.0-16.0); Lymphocytes Absolute Auto 1300 /uL (1100-4500); Lymphocytes Percent Auto 22.7 % (25-40); Mean Corpuscular HGB Conc 34.2 % (30-36); Mean Corpuscular Hemoglobin 32.2 PG (26-34); Mean Corpuscular Volume 94.1 fL (80-100); Monocytes Absolute Auto 700 /uL (0-900); Monocytes Percent Auto 11.6 % (3-14); Neutrophils Absolute Auto 3300 /uL (1500-7000); Neutrophils Percent Auto 57.2 % (50-75); Platelet Count 253 X10^3/uL (150-400); Red Blood Cell Count 3.59 X10^6/uL (4.0-5.2); Red Cell Distribution Width 13.2 % (11.6-14.8); White Blood Cell Count 5.7 X10^3/uL (4.5-11.0)
[2023-09-03 10:35] LABS: Alanine Aminotransferase 9 IU/L (<35); Albumin 4.3 g/dL (3.5-5.0); Albumin Globulin Ratio 1.6 (1.0-2.8); Alkaline Phosphatase 76 U/L (38-126); Aspartate Aminotransferase 22 IU/L (14-36); BUN Creatinine Ratio 26.3 (6-22); Bilirubin Total 0.6 mg/dL (0.2-1.3); Blood Urea Nitrogen 35 mg/dL (7-17); Calcium 9.9 mg/dL (8.4-10.2); Carbon Dioxide 24 mmol/L (22-32); Chloride 101 mmol/L (98-107); Cholesterol 289 mg/dL (140-199); Estimated Glomerular Filt Rate 41 mL/min (>60); Globulin 2.7 g/dL (1.7-4.1); Glucose 98 mg/dL (80-110); HDL Cholesterol 52 mg/dL (40-60); HEMOLYSIS < 15 (0-50); LDL Cholesterol Calculated 202 mg/dL (<100); Potassium 4.1 mmol/L (3.4-5.1); Sodium 135 mmol/L (137-145); Triglycerides 174 mg/dL (35-150)
[2023-09-03 11:04] LABS: Thyroid Stimulating Hormone 1.61 uIU/mL (0.47-4.68)
== END ==
PROVIDERS: PCP Family Medicine; Referring Provider Family Medicine; Visit Provider Family Medicine
DX: I10 Essential (primary) hypertension (principal); E66.9 Obesity, unspecified; E78.5 Hyperlipidemia, unspecified; Z79.899 Other long term (current) drug therapy
CPT/HCPCS: 36415; 80053; 80061; 84443; 85025

== ENCOUNTER → 2023-10-28 08:11 | Outpatient (CLI) | payer MEDICARE, SELFPAY | PROVIDERS: PCP Family Medicine; Visit Provider Urology | DX: N39.0 Urinary tract infection, site not specified (principal) | CPT/HCPCS: 87077; 87086 ==

== ENCOUNTER → 2024-01-13 09:33 | Outpatient (CLI) | payer MEDICARE, SELFPAY | PROVIDERS: PCP Family Medicine; Visit Provider Urology | DX: N95.2 Postmenopausal atrophic vaginitis (principal); N39.0 Urinary tract infection, site not specified; R33.9 Retention of urine, unspecified | CPT/HCPCS: 51798; 81002; 87077; 87086; 87186; 99213 ==

== ENCOUNTER → 2024-06-15 12:37 | Outpatient (CLI) | payer MEDICARE, SELFPAY ==
[2024-06-15 13:37] LABS: Alanine Aminotransferase 11 IU/L (<35); Albumin 4.4 g/dL (3.5-5.0); Albumin Globulin Ratio 1.7 (1.0-2.8); Alkaline Phosphatase 81 U/L (38-126); Aspartate Aminotransferase 21 IU/L (14-36); BUN Creatinine Ratio 22.1 (6-22); Bilirubin Total 0.6 mg/dL (0.2-1.3); Blood Urea Nitrogen 34 mg/dL (7-17); Calcium 9.8 mg/dL (8.4-10.2); Carbon Dioxide 27 mmol/L (22-32); Chloride 101 mmol/L (98-107); Estimated Glomerular Filt Rate 34 mL/min (>60); Globulin 2.6 g/dL (1.7-4.1); Glucose 136 mg/dL (70-99); HEMOLYSIS < 15 (0-50); Potassium 3.5 mmol/L (3.4-5.1); Sodium 137 mmol/L (137-145)
== END ==
LOC: LAB 12:38
PROVIDERS: PCP Family Medicine; Referring Provider Urology; Visit Provider Urology
DX: N39.0 Urinary tract infection, site not specified (principal)
CPT/HCPCS: 36415; 80053

== ENCOUNTER → 2024-06-16 09:46 | Outpatient (CLI) | payer MEDICARE, SELFPAY | PROVIDERS: PCP Family Medicine; Visit Provider Urology | DX: N39.0 Urinary tract infection, site not specified (principal) | CPT/HCPCS: 87077; 87086 ==

== ENCOUNTER → 2024-08-18 16:28 | Outpatient (CLI) | payer MEDICARE, SELFPAY ==
--- NOTE | 2024-08-18 16:30 | DI.MG.S_ITS ---
MM screening mammo BI: 08/18/2024. BI-RADS: 2 CLINICAL: 79-year old female for bilateral screening mammogram. No Tyrer-Cuzick risk score calculation due to the patient's personal history of breast cancer. Patient reports a history of left breast carcinoma diagnosed at age 77. Status-post left lumpectomy with radiation therapy and hormonal therapy. No first-degree family history of breast cancer. Patient was diagnosed within the last 5 years. The patient had a prior left breast biopsy. PRIOR EXAMS 08/04/2023, 09/04/2022, 06/28/2022, MAMMOGRAPHY TECHNIQUE: 2D and 3D (tomosynthesis) digital mammographic views obtained, with additional images as needed for full coverage. Current study was also evaluated with a Computer Aided Detection (CAD) system. DENSITY C. The breasts are heterogeneously dense, which may obscure small masses. MAMMOGRAPHY FINDINGS Right: No suspicious mass, asymmetry, microcalcification, or other abnormality seen. Left: Benign-appearing post-surgical changes noted on the left. There are no suspicious masses, calcifications, or other findings in the breast. IMPRESSION: Right * No evidence of malignancy. Left * No evidence of malignancy with benign findings. RECOMMENDATIONS Bilateral * Annual screening mammography. OVERALL ASSESSMENT CATEGORY BI-RADS-2: Benign. The [employer] recommends annual screening mammography beginning at age 40 for women with average risk of breast cancer. ELECTRONICALLY SIGNED: Concepción Medina M.D. on 08/22/2024 at 08:59:44 PM PT Interpreting Station ID: [id number]
== END ==
PROVIDERS: PCP Family Medicine; Referring Provider Family Medicine; Visit Provider Family Medicine
DX: Z12.31 Encounter for screening mammogram for malignant neoplasm of breast (principal); Z85.3 Personal history of malignant neoplasm of breast; R92.333 Mammographic heterogeneous density, bilateral breasts
CPT/HCPCS: 77063; 77067

== ENCOUNTER → 2024-12-15 15:01 | Outpatient (CLI) | payer MEDICARE, SELFPAY ==
[2024-12-15 16:05] LABS: Alanine Aminotransferase 12 IU/L (<35); Albumin 4.6 g/dL (3.5-5.0); Albumin Globulin Ratio 1.5 (1.0-2.8); Alkaline Phosphatase 66 U/L (38-126); Blood Urea Nitrogen 26 mg/dL (7-17); Calcium 9.9 mg/dL (8.4-10.2); Carbon Dioxide 24 mmol/L (22-32); Chloride 98 mmol/L (98-107); Estimated Glomerular Filt Rate 40 mL/min (>60); Globulin 3.1 g/dL (1.7-4.1); Glucose 99 mg/dL (70-99); HEMOLYSIS < 15 (0-50); Potassium 3.7 mmol/L (3.4-5.1); Sodium 134 mmol/L (137-145); Total Protein 7.7 g/dL (6.3-8.2)
== END ==
PROVIDERS: Urology; PCP Family Medicine; Referring Provider Family Medicine; Visit Provider Family Medicine
DX: R31.0 Gross hematuria (principal); N39.0 Urinary tract infection, site not specified
CPT/HCPCS: 36415; 80053

== ENCOUNTER → 2024-12-22 09:22 | Outpatient (CLI) | payer MEDICARE, SELFPAY ==
[2024-12-22 10:12] LABS: Add Manual Diff / Slide Review NO; Hematocrit 33.1 % (36-46); Hemoglobin 11.4 g/dL (12.0-16.0); Lymphocytes Absolute Auto 1800 /uL (1100-4500); Mean Corpuscular HGB Conc 34.5 % (30-36); Mean Corpuscular Hemoglobin 32.0 PG (26-34); Mean Corpuscular Volume 92.9 fL (80-100); Platelet Count 222 X10^3/uL (150-400)
[2024-12-22 10:41] LABS: Alanine Aminotransferase 11 IU/L (<35); Albumin 4.4 g/dL (3.5-5.0); Albumin Globulin Ratio 1.5 (1.0-2.8); Alkaline Phosphatase 62 U/L (38-126); Blood Urea Nitrogen 29 mg/dL (7-17); Calcium 9.5 mg/dL (8.4-10.2); Carbon Dioxide 24 mmol/L (22-32); Chloride 103 mmol/L (98-107); Cholesterol 205 mg/dL (140-199); Estimated Glomerular Filt Rate 39 mL/min (>60); Globulin 2.9 g/dL (1.7-4.1); Glucose 111 mg/dL (70-99); HDL Cholesterol 61 mg/dL (40-60); HEMOLYSIS < 15 (0-50); Potassium 3.9 mmol/L (3.4-5.1); Sodium 139 mmol/L (137-145); Total Protein 7.3 g/dL (6.3-8.2); Triglycerides 172 mg/dL (35-150)
[2024-12-22 11:08] LABS: TSH w/ Reflex to FT4 1.87 uIU/mL (0.47-4.68)
== END ==
PROVIDERS: PCP Family Medicine; Referring Provider Family Medicine; Visit Provider Family Medicine
DX: R31.0 Gross hematuria (principal); I10 Essential (primary) hypertension; E78.2 Mixed hyperlipidemia; N39.0 Urinary tract infection, site not specified; R33.9 Retention of urine, unspecified
CPT/HCPCS: 36415; 80053; 80061; 84443; 85025; 87077; 87086